=== PATIENT | female | born 1940 | race Caucasian/White ===

== ENCOUNTER → 2017-08-16 | Outpatient (CLI) | payer MEDICARE ==
--- NOTE | 2017-08-16 16:00 | Diagnostic Imaging Report ---
EXAMINATION: Bilateral screening mammogram 2D views with tomosynthesis. The current study was also evaluated with a Computer Aided Detection (CAD) system. INDICATION: Screening. PERSONAL HISTORY: No current complaints stated on the questionnaire. COMPARISON: 08/19/2016. FINDINGS: The breasts are composed of heterogeneously dense parenchyma which may decrease mammographic sensitivity. There is an oval superior periareolar lobulated nodule seen in the left breast. The right breast demonstrates no definite change. IMPRESSION: Focal compression views and ultrasound evaluation for a superior periareolar 8 mm focal asymmetry would be recommended. ACR BI-RADS Category 0: Incomplete. (Needs additional imaging evaluation). Result letter will be mailed to the patient. Note: At least 10% of breast cancer is not imaged by mammography. Dictated by: Dictated on workstation # [id number]
== END ==
LOC: RAD 09:50
PROVIDERS: ATTEND Nurse Practitioner
DX: Z12.31 Encounter for screening mammogram for malignant neoplasm of breast (principal); N64.89 Other specified disorders of breast
CPT/HCPCS: 77067

== ENCOUNTER → 2017-08-20 | Outpatient (CLI) | payer MEDICARE ==
--- NOTE | 2017-08-20 19:54 | Diagnostic Imaging Report ---
EXAMINATION: Left breast ultrasound. INDICATION: Nodule seen mammographically in the upper periareolar aspect of the left breast. FINDINGS: There is a 1.1 cm simple cyst seen at 12:00 zone, 2 cm from the nipple. This explains the nodule seen on mammography. No suspicious mass is seen. IMPRESSION: The nodule seen on mammography matches a 1.1 cm simple cyst at 12:00 zone, 2 cm from the nipple, with no suspicious mass. Annual screening mammogram is recommended. ACR BI-RADS Category 2: Benign findings. Result letter will be mailed to the patient. Note: At least 10% of breast cancer is not imaged by mammography. Dictated on workstation # [id number]
--- NOTE | 2017-08-20 19:57 | Diagnostic Imaging Report ---
EXAMINATION: Left breast diagnostic mammogram with tomography. The current study was also evaluated with a Computer Aided Detection (CAD) system. COMPARISON: 08/10/16. INDICATION: Evaluation of periareolar left breast nodule. FINDINGS: There is a confirmed nodule measuring 8 mm with lobulated circumscribed margins at 12-1 o'clock zone of the periareolar region. This is favored to be benign. Scattered benign-appearing calcifications are seen. IMPRESSION: Likely benign lobulated circumscribed 8 mm periareolar nodule is confirmed. Ultrasound evaluation pending. ACR BI-RADS Category 0: Incomplete. (Needs additional imaging evaluation). Result letter will be mailed to the patient. Note: At least 10% of breast cancer is not imaged by mammography. Dictated on workstation # [id number]
== END ==
LOC: RAD 09:02
PROVIDERS: ATTEND Nurse Practitioner
DX: R92.8 Other abnormal and inconclusive findings on diagnostic imaging of breast (principal)
CPT/HCPCS: 76642

== ENCOUNTER 2017-10-05 09:17 | Emergency (ER) | payer MEDICARE ==
[~2017-10-05] VITALS: Ht 160 cm; Wt 66.7 kg
[~2017-10-05 09:17] MED LIST: AMLO5TAB2 PO; ASPI-586 PO; IRBE300T18 PO; NFNEB10T PO; ROSU10TA24 PO; VIT1CAPS14 PO
[2017-10-05] MEDS ORDERED: PRD20T PO (10:47)
[2017-10-05] MEDS ORDERED: HYDR-757 PO (10:47)
--- NOTE | 2017-10-05 10:48 | ED Lower Extremity ---
General Chief Complaint: Lower Extremity Stated Complaint: L LEG PAIN Nursing Triage Note: PT. C/O MID-REAR PAIN RADIATING TO L-LEG. PT. STATES SHE HAS PAD. THIS PAIN STARTED ON WEDNESDAY. WORSE TODAY. NOT ABLE TO FIND COMFORTABLE PLACE TO SIT. PT. STATES SHE HAD BEEN SITTING FOR A LONG TIME SEWING ET NOTICED PAIN ONCE GETTING UP FROM SEWING. HAS ONLY TAKEN ALEVE ET TYLENOL FOR PAIN. PT. DOES HAVE STENT HX TO R-LEG. PLACED IN 2009. DR. VIRAL DIEHL IS PHYSICIAN Nursing Sepsis Screen: No Definite Risk Source: patient Exam Limitations: no limitations History of Present Illness Time seen by provider: 10:44 Initial Comments To ER with left buttock pain that radiates down the posterior left leg into the left foot. This began 2 days ago. No known injury. No loss of bowel or bladder control. No fevers or chills. No saddle anesthesia. No history of cancer. She does have peripheral arterial disease and has a stent in the right leg Onset: last week Severity: moderate Pain/Injury Location: left leg Method of Injury: unknown Modifying Factors: Worse With Movement Allergies and Home Medications Allergies Coded Allergies: Penicillins (Verified Allergy, Unknown, 08/29/17) hydrochlorothiazide (Verified Allergy, Unknown, 08/29/17) Home Medications Amlodipine Besylate 5 Mg Tablet, 5 MG PO DAILY, (Reported) Aspirin 81 Mg Tablet.dr, 81 MG PO DAILY, (Reported) Irbesartan 300 Mg Tablet, 300 MG PO DAILY, (Reported) Nebivolol HCl 10 Mg Tab, 10 MG PO HS, (Reported) Rosuvastatin Calcium 10 Mg Tablet, 10 MG PO DAILY, (Reported) Vit C/Dimitri AC/Lut/Copper/Znox 1 Each Capsule, 1 EACH PO, (Reported) Constitutional: see HPI EENTM: see HPI Respiratory: no symptoms reported Cardiovascular: no symptoms reported Genitourinary: no symptoms reported Musculoskeletal: see HPI, back pain Skin: no symptoms reported Psychiatric/Neurological: No Symptoms Reported Past Qlyiiea-Ygpjdv-Dbtkvv Hx Patient Social History Alcohol Use: Denies Use Recreational Drug Use: No Smoking Status: Never a Smoker Recent Foreign Travel: No Contact w/Someone Who Travel: No Recent Infectious Disease Expo: No Surgeries History of Surgeries: Yes (stEnt in R leg) Respiratory History of Respiratory Disorde: No Cardiovascular History of Cardiac Disorders: Yes Cardiac Disorders: Coronary Artery Disease, High Cholesterol, Hypertension Neurological History of Neurological Disord: No Genitourinary History of Genitourinary Disor: No Gastrointestinal History of Gastrointestinal Di: No Musculoskeletal History of Musculoskeletal Dis: No Endocrine History of Endocrine Disorders: No HEENT History of HEENT Disorders: No Cancer History of Cancer: No Psychosocial History of Psychiatric Problem: No Blood Transfusions History of Blood Disorders: No Physical Exam Vital Signs Vital Sign - Last 12Hours 10/05/17 09:51 Temp 98.6 Pulse 66 Resp 18 B/P (MAP) 177/75 (109) Pulse Ox 98 O2 Delivery Room Air Capillary Refill : Less Than 3 Seconds General Appearance: WD/WN, no apparent distress HEENT: PERRL/EOMI, normal ENT inspection Neck: non-tender, full range of motion Respiratory: no respiratory distress, no accessory muscle use Gastrointestinal: non tender, soft Hips: bilateral hip non-tender, bilateral hip normal inspection, bilateral hip normal range of motion Legs: left leg pain, left leg other (no swelling, no erythema, no ecchymosis, no mottling or petechiae. I am unable to palpate a dorsalis pedis pulse in either foot. However I am able to Doppler blood flow over the dorsalis pedis location bilaterally.) Knees: bilateral knee non-tender, bilateral knee normal inspection, bilateral knee normal range of motion Ankles: bilateral ankle non-tender, bilateral ankle normal inspection, bilateral ankle normal range of motion Feet: bilateral foot non-tender, bilateral foot normal inspection, bilateral foot normal range of motion Neurologic/Psychiatric: alert, normal mood/affect, oriented x 3 Skin: normal color, warm/dry Progress/Results/Core Measures Results/Orders Vital Signs/I&O Vital Sign - Last 12Hours 10/05/17 09:51 Temp 98.6 Pulse 66 Resp 18 B/P (MAP) 177/75 (109) Pulse Ox 98 O2 Delivery Room Air Blood Pressure Mean: 109 Departure Impression Impression: Primary Impression: Sciatica Disposition: 01 HOME, SELF-CARE Condition: Stable Departure-Patient Inst. Decision time for Depature: 10:46 Referrals: BEN RAMOS MD (PCP/Family) Primary Care Physician Patient Instructions: Radiculopathy Add. Discharge Instructions: 1. Medication as directed 2. Return to ER for any concerns 3. Follow-up with your doctor next week 4. Return to ER for any worsening pain or failure to improve. All discharge instructions reviewed with patient and/or family. Voiced understanding. Scripts Hydrocodone/Acetaminophen ([place] 5-325 Tablet) 1 Each Tablet 1 EACH PO Q6H Y for PAIN-MODERATE TO SEVERE, #14 TAB Prov: KRYSTYNA LARA APRN 10/05/17 Prednisone (Prednisone) 20 Mg Tab 40 MG PO DAILY, #8 TAB Prov: KRYSTYNA LARA APRN 10/05/17 KRYSTYNA LARA APRN Oct 05, 2017 10:48
[2017-10-05 11:32] VITALS: BP 175/84
== END 2017-10-05 11:33 | disposition home or self-care (01) ==
LOC: EDUNIT# 09:17 → ER 09:19
DX: M54.40 Lumbago with sciatica, unspecified side (principal); I25.10 Atherosclerotic heart disease of native coronary artery without angina pectoris; I10 Essential (primary) hypertension; E78.00 Pure hypercholesterolemia, unspecified; Z95.820 Peripheral vascular angioplasty status with implants and grafts; Z79.82 Long term (current) use of aspirin
CPT/HCPCS: 99283

== ENCOUNTER → 2017-10-28 | Outpatient (CLI) | payer MEDICARE ==
[~2017-10-28] MED LIST changes: +HYDR-757 PO; +PRD20T PO
--- NOTE | 2017-10-28 15:19 | Diagnostic Imaging Report ---
INDICATION: Back pain with extension into the left leg. COMPARISON: None. FINDINGS: Frontal and lateral radiographic views of the lumbar spine were obtained. There is slight grade 1 retrolisthesis at L3-L4. There is also slight levoscoliotic deformity epicentered at the L3 level. Otherwise, static alignment is maintained. There is no evidence of jumped facets. Vertebral body heights are maintained. There is no evidence of acute fracture. There are eknr-pu-dqmqqdmj multilevel degenerative changes consisting of intervertebral disc height loss and facet arthropathy. These changes appear greatest at the L3-L4 through L5-S1 levels. Note is made of calcified aortic and arterial atherosclerosis. No unexpected radiopaque foreign bodies are seen. IMPRESSION: 1. No radiographic evidence of acute fracture or dislocation in the lumbar spine. 2. Moderate multilevel degenerative changes. Dictated by: Dictated on workstation # [id number]
== END ==
LOC: RAD 14:11
PROVIDERS: ATTEND Physician Assistant
DX: M47.817 Spondylosis without myelopathy or radiculopathy, lumbosacral region (principal)
CPT/HCPCS: 72100

== ENCOUNTER → 2017-11-12 | Outpatient (CLI) | payer MEDICARE ==
[~2017-11-12] MED LIST changes: -ROSU10TA24 PO; +ROSU10TA26 PO
--- NOTE | 2017-11-12 16:58 | Diagnostic Imaging Report ---
PROCEDURE: MRI lumbar spine. TECHNIQUE: Multiplanar, multisequence MRI of the lumbar spine was performed without contrast. INDICATION: Low back and left leg pain. COMPARISON: Lumbar spine radiographs from 10/28/2017. FINDINGS: There are five lumbar-type vertebral bodies. Minimal anterolisthesis of L4 on L5. Alignment is otherwise unremarkable. Vertebral body heights are preserved. Moderate diffuse degenerative endplate changes. Bone marrow signal is otherwise unremarkable. No abnormal signal in the conus which terminates at L1. Normal morphology of the cauda equina. 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 L1-L2: No spinal canal, lateral recess, or neuroforaminal narrowing. L2-L3: Moderate facet arthropathy. No spinal canal, lateral recess, or neuroforaminal narrowing. L3-L4: Annular disc bulge, ligamentous hypertrophy, and facet arthropathy all result in moderate spinal canal and bilateral lateral recess narrowing. Disc space height loss also contributes to moderate bilateral neuroforaminal narrowing. L4-L5: The anterolisthesis, annular disc bulge, facet arthropathy, and ligamentous hypertrophy result in advanced bilateral lateral recess narrowing and moderate spinal canal narrowing. There is also advanced bilateral neuroforaminal narrowing. L5-S1: Ligamentous hypertrophy, facet arthropathy, and broad-based disc bulge result in advanced bilateral lateral recess narrowing and mild spinal canal narrowing. Disc space height loss also contributes to xjivivgu-xc-okbgaxaf bilateral neuroforaminal narrowing. IMPRESSION: 1. 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 2. Scattered moderate and advanced spinal canal narrowing, also detailed above. Dictated by: Dictated on workstation # [id number]
== END ==
LOC: RAD 15:54
PROVIDERS: ATTEND Physician Assistant
DX: M48.8X7 Other specified spondylopathies, lumbosacral region (principal); M51.17 Intervertebral disc disorders with radiculopathy, lumbosacral region; M46.07 Spinal enthesopathy, lumbosacral region; G96.19 Other disorders of meninges, not elsewhere classified
CPT/HCPCS: 72148

== ENCOUNTER 2020-12-28 18:43 | Inpatient (IN) | payer MEDICARE ==
[~2020-12-28] VITALS: Ht 160 cm; Wt 60.2 kg
[~2020-12-28 18:43] MED LIST changes: +AMLO-250 PO; -AMLO5TAB2 PO; +HYDR-4226 PO; -HYDR-757 PO; +IRBE300T17 PO; -IRBE300T18 PO; -ROSU10TA26 PO; +ROSU10TA28 PO
[2020-12-28] MEDS ORDERED: NS IV 1000 ML 1,000 ML IV SCH ×2 (19:00→19:30)
[2020-12-28] MEDS ORDERED: PANTOPRAZOLE 40 MG (PROTONIX) VIAL IV ONE (19:00)
[2020-12-28] MEDS ORDERED: ONDANSETRON 4 MG/2 ML (SDV) Z0FRAN IVP ONE (19:00)
[2020-12-28 19:10] LABS: BASOPHILS # (AUTO) 0.1 10^3/uL (0.0-0.1); BASOPHILS % (AUTO) 0 % (0-10); EOSINOPHILS # (AUTO) 0.1 10^3/uL (0.0-0.3); EOSINOPHILS % (AUTO) 1 % (0-10); HEMATOCRIT 29 % (35-52); HEMOGLOBIN 9.2 g/dL (11.5-16.0); LYMPHOCYTES # (AUTO) 3.4 10^3/uL (1.0-4.0); LYMPHOCYTES % (AUTO) 23 % (12-44); MEAN CORPUSCULAR HEMOGLOBIN 29 pg (25-34); MEAN CORPUSCULAR HGB CONC 32 g/dL (32-36); MEAN CORPUSCULAR VOLUME 91 fL (80-99); MEAN PLATELET VOLUME 10.6 fL (9.0-12.2); MONOCYTES # (AUTO) 0.7 10^3/uL (0.0-1.0); MONOCYTES % (AUTO) 5 % (0-12); NEUTROPHILS # (AUTO) 10.3 10^3/uL (1.8-7.8); NEUTROPHILS % (AUTO) 70 % (42-75); PLATELET COUNT 249 10^3/uL (130-400); WHITE BLOOD COUNT 14.7 10^3/uL (4.3-11.0)
--- NOTE | 2020-12-28 19:14 | Diagnostic Imaging Report ---
EXAMINATION: Chest 1 view. HISTORY: Weakness. COMPARISON: Chest radiograph 08/29/2017. FINDINGS: Heart size and pulmonary vasculature are normal. The lungs are clear without consolidation, pleural effusion or pneumothorax. Degenerative changes of the thoracic spine. Osseous structures are otherwise intact. IMPRESSION: No acute radiographic abnormality in the chest. Dictated by: Dictated on workstation # [id number]
[2020-12-28 19:28] LABS: ALANINE AMINOTRANSFERASE 20 U/L (0-55); ALBUMIN 3.6 GM/DL (3.2-4.5); ALKALINE PHOSPHATASE 52 U/L (40-136); AMYLASE 30 U/L (25-125); BAND NEUTROPHILS 1 %; BASOPHILS % (MANUAL) 0 %; BILIRUBIN,TOTAL 0.3 MG/DL (0.1-1.0); BUN/CREATININE RATIO 71; CALCIUM 8.5 MG/DL (8.5-10.1); CARBON DIOXIDE 18 MMOL/L (21-32); CHLORIDE 112 MMOL/L (98-107); CREATININE SERUM 0.75 MG/DL (0.60-1.30); EOSINOPHILS % (MANUAL) 0 %; GFR ESTIMATED > 60; GLUCOSE 145 MG/DL (70-105); LYMPHOCYTES % (MANUAL) 18 %; MAGNESIUM 1.9 MG/DL (1.6-2.4); MONOCYTES % (MANUAL) 1 %; NEUTROPHILS % (MANUAL) 78 %; POLYCHROMASIA SLIGHT; POTASSIUM 4.3 MMOL/L (3.6-5.0); REACTIVE LYMPHOCYTES 2 %; SODIUM 141 MMOL/L (135-145); TOTAL PROTEIN 5.6 GM/DL (6.4-8.2)
[2020-12-28 19:29] LABS: ANISOCYTOSIS SLIGHT
[2020-12-28 19:31] LABS: BILIRUBIN,URINE NEGATIVE (NEGATIVE); CLARITY,URINE CLEAR; COLOR,URINE YELLOW; GLUCOSE, URINE (UA) NEGATIVE (NEGATIVE); KETONES,URINE NEGATIVE (NEGATIVE); LEUKOCYTE ESTERASE ,URINE NEGATIVE (NEGATIVE); NITRITE,URINE NEGATIVE (NEGATIVE); PH,URINE 5.5 (5-9); PROTEIN,URINE NEGATIVE (NEGATIVE)
--- NOTE | 2020-12-28 19:33 | ED GI ---
General Chief Complaint: Rect Problems Stated Complaint: N/V/D Nursing Triage Note: PT TO ROOM 06 VIA EMS WITH C/O RECTAL BLEEDING/WEAKNESS X3 DAYS. Sepsis Screen: No Definite Risk Source of Information: Patient History of Present Illness Date Seen by Provider: Dec 28, 2020 Time Seen by Provider: 18:41 Initial Comments PT ARRIVES VIA EMS FROM HOME PT HAS HAD NAUSEA AND DIARRHEA WITH BLACK STOOLS SINCE LAST PM VOMITED X 1 TODAY HAS HAD 5 BLACK/DIARRHEA STOOLS NO ABDOMINAL PAIN NO FEVER, BUT HAS HAD SWEATS TODAY HAS HAD GENERALIZED WEAKNESS FOR THE LAST 2-3 DAYS NO BLOOD THINNERS, BUT TAKES 81 MG ASPIRIN DAILY NO HISTORY OF SIMILAR, AND NO HISTORY OF GI PROBLEMS PCP: DR. RAMOS--HAS NOT SEEN IN OVER A YEAR DUE TO COVID-19 FOOD SERVICE COUNTER CLERK: DR. GUIDRY--HAS ROUTINE 6 MONTH APPOINTMENT THIS Wednesday01/02/21 Allergies and Home Medications Allergies Coded Allergies: Penicillins (Verified Allergy, Unknown, 08/29/17) hydrochlorothiazide (Verified Allergy, Unknown, 08/29/17) Home Medications Amlodipine Besylate 5 Mg Tablet, 5 MG PO DAILY, (Reported) Aspirin 81 Mg Tablet.dr, 81 MG PO DAILY, (Reported) Hydrocodone/Acetaminophen 1 Each Tablet, 1 EACH PO Q6H PRN for PAIN-MODERATE TO SEVERE Prescribed by: KRYSTYNA LARA on 10/05/17 1047 Irbesartan 300 Mg Tablet, 300 MG PO DAILY, (Reported) Nebivolol HCl 10 Mg Tab, 10 MG PO HS, (Reported) Prednisone 20 Mg Tab, 40 MG PO DAILY Prescribed by: KRYSTYNA LARA on 10/05/17 1047 Rosuvastatin Calcium 10 Mg Tablet, 10 MG PO DAILY, (Reported) Patient Home Medication List Home Medication List Reviewed: Yes Review of Systems Review of Systems Constitutional: see HPI, diaphoresis, dizziness, malaise, weakness EENTM: No Symptoms Reported Respiratory: No Symptoms Reported; Denies Shortness of Air Cardiovascular: No Symptoms Reported; Denies Chest Pain Gastrointestinal: See HPI, Diarrhea, Nausea, Vomiting, Other (BLACK STOOLS) Genitourinary: No Symptoms Reported Musculoskeletal: no symptoms reported Skin: no symptoms reported Psychiatric/Neurological: No Symptoms Reported Endocrine: No Symptoms Reported Hematologic/Lymphatic: No Symptoms Reported Past Inrchgm-Bcfswg-Xfzxpe Hx Past Med/Social Hx: Reviewed and Corrections made Patient Social History Alcohol Use: Denies Use Drug of Choice: DENIES Smoking Status: Never a Smoker Recent Infectious Disease Expo: No Past Medical History Surgeries: Yes (STENT IN RIGHT LEG 2009) Vascular Surgery Respiratory: No 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 oz. 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, no motor/sensory deficits, alert, normal mood/affect, oriented x 3 Skin: cool (DRY), pallor Progress/Results/Core Measures Results/Orders Lab Results Laboratory Tests Test 12/28/20 18:55 12/28/20 19:10 Range/Units White Blood Count 14.7 H 4.3-11.0 10^3/uL Red Blood Count 3.17 L 3.80-5.11 10^6/uL Hemoglobin 9.2 L 11.5-16.0 g/dL Hematocrit 29 L 35-52 % Mean Corpuscular Volume 91 80-99 fL Mean Corpuscular Hemoglobin 29 25-34 pg Mean Corpuscular Hemoglobin Concent 32 32-36 g/dL Red Cell Distribution Width 14.4 10.0-14.5 % Platelet Count 249 130-400 10^3/uL Mean Platelet Volume 10.6 9.0-12.2 fL Immature Granulocyte % (Auto) 1 % Neutrophils (%) (Auto) 70 42-75 % Lymphocytes (%) (Auto) 23 12-44 % Monocytes (%) (Auto) 5 0-12 % Eosinophils (%) (Auto) 1 0-10 % Basophils (%) (Auto) 0 0-10 % Neutrophils # (Auto) 10.3 H 1.8-7.8 10^3/uL Lymphocytes # (Auto) 3.4 1.0-4.0 10^3/uL Monocytes # (Auto) 0.7 0.0-1.0 10^3/uL Eosinophils # (Auto) 0.1 0.0-0.3 10^3/uL Basophils # (Auto) 0.1 0.0-0.1 10^3/uL Immature Granulocyte # (Auto) 0.1 0.0-0.1 10^3/uL Neutrophils % (Manual) 78 % Lymphocytes % (Manual) 18 % Monocytes % (Manual) 1 % Eosinophils % (Manual) 0 % Basophils % (Manual) 0 % Band Neutrophils 1 % Reactive Lymphocytes 2 % Polychromasia SLIGHT Anisocytosis SLIGHT Prothrombin Time 14.0 12.2-14.7 SEC INR Comment 1.0 0.8-1.4 Activated Partial Thromboplast Time 24 24-35 SEC Sodium Level 141 135-145 MMOL/L Potassium Level 4.3 3.6-5.0 MMOL/L Chloride Level 112 H 98-107 MMOL/L Carbon Dioxide Level 18 L 21-32 MMOL/L Anion Gap 11 5-14 MMOL/L Blood Urea Nitrogen 53 H 7-18 MG/DL Creatinine 0.75 0.60-1.30 MG/DL Estimat Glomerular Filtration Rate > 60 BUN/Creatinine Ratio 71 Glucose Level 145 H 70-105 MG/DL Calcium Level 8.5 8.5-10.1 MG/DL Corrected Calcium 8.8 8.5-10.1 MG/DL Magnesium Level 1.9 1.6-2.4 MG/DL Total Bilirubin 0.3 0.1-1.0 MG/DL Aspartate Amino Transf (AST/SGOT) 19 5-34 U/L Alanine Aminotransferase (ALT/SGPT) 20 0-55 U/L Alkaline Phosphatase 52 40-136 U/L Troponin I < 0.028 <0.028 NG/ML Total Protein 5.6 L 6.4-8.2 GM/DL Albumin 3.6 3.2-4.5 GM/DL Amylase Level 30 25-125 U/L Urine Color YELLOW Urine Clarity CLEAR Urine pH 5.5 5-9 Urine Specific [place] 1.020 1.016-1.022 Urine Protein NEGATIVE NEGATIVE Urine Glucose (UA) NEGATIVE NEGATIVE Urine Ketones NEGATIVE NEGATIVE Urine Nitrite NEGATIVE NEGATIVE Urine Bilirubin NEGATIVE NEGATIVE Urine Urobilinogen 0.2 < = 1.0 MG/DL Urine Leukocyte Esterase NEGATIVE NEGATIVE Urine RBC (Auto) NEGATIVE NEGATIVE Urine RBC NONE /HPF Urine WBC NONE /HPF Urine Squamous Epithelial Cells 0-2 /HPF Urine Crystals NONE /LPF Urine Bacteria TRACE /HPF Urine Casts PRESENT /LPF Urine Hyaline Casts 0-2 H /LPF Urine Mucus SMALL H /LPF Urine Culture Indicated NO My Orders Orders - VICTORINA FORD DO Ed Iv/Invasive Line Start (12/28/20 18:48) Ekg Tracing (12/28/20 18:48) O2 (12/28/20 18:48) Monitor-Rhythm Ecg Trace Only (12/28/20 18:48) Chest 1 View, Ap/Pa Only (12/28/20 18:48) Amylase (12/28/20 18:48) Cbc With Automated Diff (12/28/20 18:48) Comprehensive Metabolic Panel (12/28/20 18:48) Magnesium (12/28/20 18:48) Protime With Inr (12/28/20 18:48) Partial Thromboplastin Time (12/28/20 18:48) Ua Culture If Indicated (12/28/20 18:48) Type And Screen (12/28/20 18:48) Troponin I (12/28/20 18:48) Ed Iv/Invasive Line Start (12/28/20 18:48) Ns Iv 1000 Ml (Sodium Chloride 0.9%) (12/28/20 19:00) Ondansetron Injection (Zofran Injectio (12/28/20 19:00) Pantoprazole Injection (Protonix Injecti (12/28/20 19:00) Catheter(Urinary) Insert & Ass 03,15 (12/28/20 18:52) Manual Differential (12/28/20 18:55) Ed Iv/Invasive Line Start (12/28/20 19:18) Ns Iv 1000 Ml (Sodium Chloride 0.9%) (12/28/20 19:30) Ct Abdomen/Pelvis W (12/28/20 19:34) Iohexol Injection (Omnipaque 350 Mg/Ml 1 (12/28/20 20:15) Received Contrast (Hold Metformin- Contr (12/28/20 20:15) Ns (Ivpb) (Sodium Chloride 0.9% Ivpb Bag (12/28/20 20:15) Medications Given in ED Current Medications Medications Dose Ordered Sig/Juan F Route Start Time Stop Time Status Last Admin Dose Admin Iohexol 100 ml ONCE ONCE IV 12/28/20 20:15 12/28/20 20:16 DC 12/28/20 20:22 70 ML Ondansetron HCl 4 mg ONCE ONCE IVP 12/28/20 19:00 12/28/20 19:01 DC 12/28/20 19:21 4 MG Pantoprazole 80 mg ONCE ONCE IV 12/28/20 19:00 12/28/20 19:01 DC 12/28/20 19:21 80 MG Sodium Chloride 100 ml ONCE ONCE IV 12/28/20 20:15 12/28/20 20:16 DC 12/28/20 20:22 80 ML Vital Signs/I&O 12/28/20 18:44 Temp 36.5 Pulse 80 Resp 16 B/P (MAP) 113/64 (80) O2 Delivery Room Air 12/29/20 00:00 Intake Total 2000 ml Balance 2000 ml Blood Pressure Mean: 47 Progress Progress Note : Progress Note GIVEN IV FLUIDS AND PROTONIX AND ZOFRAN NO DETERIORATION IN PT'S CONDITION DURING ER STAY Initial ECG Impression Date: Dec 28, 2020 Initial ECG Impression Time: 19:24 Initial ECG Rate: 86 Initial ECG Rhythm: Normal Sinus (WITH PVC'S) Initial ECG Impression: Nonspecific Changes Diagnostic Imaging Comments CXR--NO ACUTE PROCESS, PER RADIOLOGIST REPORT AT [address] CT ABDOMEN/PELVIS--PER RADIOLOGIST REPORT AT 2049 FINDINGS: Lung bases: Bibasilar dependent atelectasis. Solid organs: The liver is normal without focal lesion. The gallbladder is normal. There is no biliary ductal dilation. Pancreas is normal. Spleen is normal. There is an indeterminate 1.6 cm right adrenal nodule with Hounsfield units of 131. The left adrenal gland is unremarkable. The kidneys are normal without hydronephrosis. Bowel: The stomach and small bowel are normal without obstruction. There is scattered colonic diverticulosis. The appendix is unremarkable. Peritoneum: There is no intraperitoneal free fluid or free air. No suspicious lymphadenopathy. Vasculature: Calcification of the aorta without aneurysm. Musculoskeletal: Degenerative changes of the spine without suspicious osseous lesion or compression fracture. Pelvis: The uterus and adnexa are normal. A Sanchez catheter is present within the urinary bladder. Intraluminal air likely secondary to Sanchez catheter. IMPRESSION: 1. No acute abnormality in the abdomen or pelvis. 2. Colonic diverticulosis without findings of diverticulitis. 3. Indeterminate 1.6 cm right adrenal nodule. This can be evaluated with a dedicated CT or MRI of the abdomen adrenal mass protocol in a nonemergent setting. Reviewed: Reviewed by Me Departure Communication (Admissions) Family Conversation RN HAS UPDATED PT'S SON ON CONDITION AND PLAN FOR ADMIT 2049--SPOKE WITH DR. HART, HOSPITALIST, ACCEPTS PT FOR ADMIT 2053--SPOKE WITH DR. LEVY, SURGERY CONSULT Impression Primary Impression: GI bleed Additional Impression: Anemia Disposition: ADMITTED INPATIENT Condition: Stable Admissions Decision to Admit Reason: Admit from ER (General) Decision to Admit/Date: Dec 28, 2020 Time/Decision to Admit Time: 20:50 Departure-Patient Inst. Referrals: BEN RAMOS MD (PCP/Family) Primary Care Physician VICTORINA FORD DO Dec 28, 2020 19:33
[2020-12-28 19:36] LABS: BACTERIA,URINE TRACE /HPF; HYALINE CASTS, URINE 0-2 /LPF; SQUAMOUS EPITHELIAL CELL,UR 0-2 /HPF
[2020-12-28] MEDS ORDERED: NS 100 ML (IVPB) BAG IV ONE (20:15)
[2020-12-28] MEDS ORDERED: HOLD METFORMIN - RECEIVED CONTRAST 20 ML VIAL IV SCH (20:15)
[2020-12-28] MEDS ORDERED: IOHEXOL 350 MG/ML 100 ML (OMNIPAQUE 350) VIAL IV ONE (20:15)
--- NOTE | 2020-12-28 20:42 | Diagnostic Imaging Report ---
EXAMINATION: CT abdomen and pelvis with intravenous contrast. TECHNIQUE: Multiple contiguous axial images were obtained through the abdomen and pelvis after the uneventful administration of intravenous contrast. All CT scans use one or more of the following dose optimizing techniques: automated exposure control, MA and/or KvP adjustment based on patient size and exam type or iterative reconstruction. HISTORY: VOMITING/DIARRHEA, BLACK STOOLS, ANEMIA COMPARISON: None available. FINDINGS: Lung bases: Bibasilar dependent atelectasis. Solid organs: The liver is normal without focal lesion. The gallbladder is normal. There is no biliary ductal dilation. Pancreas is normal. Spleen is normal. There is an indeterminate 1.6 cm right adrenal nodule with Hounsfield units of 131. The left adrenal gland is unremarkable. The kidneys are normal without hydronephrosis. Bowel: The stomach and small bowel are normal without obstruction. There is scattered colonic diverticulosis. The appendix is unremarkable. Peritoneum: There is no intraperitoneal free fluid or free air. No suspicious lymphadenopathy. Vasculature: Calcification of the aorta without aneurysm. Musculoskeletal: Degenerative changes of the spine without suspicious osseous lesion or compression fracture. Pelvis: The uterus and adnexa are normal. A Sanchez catheter is present within the urinary bladder. Intraluminal air likely secondary to Sanchez catheter. IMPRESSION: 1. No acute abnormality in the abdomen or pelvis. 2. Colonic diverticulosis without findings of diverticulitis. 3. Indeterminate 1.6 cm right adrenal nodule. This can be evaluated with a dedicated CT or MRI of the abdomen adrenal mass protocol in a nonemergent setting. Dictated by: Dictated on workstation # [id number]
[2020-12-28 21:58] VITALS: BP 155/77
[2020-12-28] MEDS ORDERED: ONDANSETRON 4 MG/2 ML (SDV) Z0FRAN IV PRN (22:15)
[2020-12-28 22:35] LABS: HEMOGLOBIN 7.5 g/dL (11.5-16.0)
[2020-12-28] MEDS: NS IV 1000 ML 1,000 ML IV SCH (22:48)
--- NOTE | 2020-12-28 23:11 | CONSULTATION REPORT ---
DATE OF SERVICE: ADMITTING PHYSICIAN: Dr. Rema Abernathy ATTENDING PRIMARY CARE PHYSICIAN: Dr. Soren Teague. HISTORY OF PRESENT ILLNESS: The patient is an 80 year-old female who presented to the Emergency Department with significant weakness as well as diarrhea and noticing very dark stools. She also reports that she did have one episode of nausea and vomiting; however, does not recall any hematemesis, no coffee ground emesis. She does not report any past history of peptic ulcer disease; however, is on aspirin for coronary artery disease and peripheral vascular disease. Her hemoglobin on admission was 9.2. PAST MEDICAL HISTORY: Hypertension, peripheral vascular disease, coronary artery disease, hypertension, hypercholesterolemia. PAST SURGICAL HISTORY: Lower extremity arterial angioplasty and stent placement. ALLERGIES: PENICILLIN, HYDROCHLOROTHIAZIDE. MEDICATIONS: Amlodipine 5 mg daily, aspirin 81 mg daily, irbesartan 300 mg daily, nebivolol 10 mg daily, rosuvastatin 10 mg daily. SOCIAL HISTORY: Negative smoke, negative alcohol. FAMILY HISTORY: Noncontributory. VITAL SIGNS: Temperature 35.5, blood pressure 81/47, pulse 103, pulse ox 96% on room air. REVIEW OF SYSTEMS: This is a well-nourished female, currently weak. She is alert and oriented. She does report some exertional shortness of breath. No cough or sputum production. No chest pain, palpitations or diaphoresis. One episode of nausea, vomiting. No hematemesis, no coffee ground emesis. Loose stools for the past 3 days, which had been darker in coloration. No red blood per rectum. No fever, chills, no recent inadvertent weight loss. All other review of systems negative. PHYSICAL EXAMINATION: CHEST: Few scattered rales bilaterally. HEART: Regular, no murmurs. EXTREMITIES: No lower extremity edema, negative Homans sign. HEENT: No scleral icterus. NECK: No cervical lymphadenopathy. ABDOMEN: Soft, nondistended. There is mild discomfort in the epigastric region upon deep palpation. No peritoneal signs. SKIN: Warm, dry. LABORATORY DATA: WBC 14.7, hemoglobin 9.2, hematocrit 29, platelets 249, BUN 53, creatinine 0.75. ASSESSMENT AND PLAN: An 81-year-old female with anemia likely secondary to an upper gastrointestinal bleed. She is being admitted and given IV hydration and serial hemoglobin and hematocrit checks. She is also being started on a PPI IV on a b.i.d. basis. We will also proceed with an EGD on this admission. Job ID: [id number] DocumentID: [id number] Dictated Date: 12/28/2020 22:10:13 Customer Equipment Engineer Date: 12/28/2020 23:10:28 Dictated By: MATHIEU LEVY MD [facility]
[2020-12-28 23:43] VITALS: BP 171/64
[2020-12-29] VITALS (9 sets, daily range): BP systolic 123–157; BP diastolic 54–68
[2020-12-29 05:02] LABS: BASOPHILS % (AUTO) 0 % (0-10); EOSINOPHILS % (AUTO) 0 % (0-10); HEMATOCRIT 25 % (35-52); HEMOGLOBIN 7.5 g/dL (11.5-16.0); LYMPHOCYTES # (AUTO) 2.4 10^3/uL (1.0-4.0); LYMPHOCYTES % (AUTO) 20 % (12-44); MEAN CORPUSCULAR HEMOGLOBIN 29 pg (25-34); MEAN CORPUSCULAR HGB CONC 31 g/dL (32-36); MEAN CORPUSCULAR VOLUME 95 fL (80-99); MEAN PLATELET VOLUME 11.7 fL (9.0-12.2); MONOCYTES # (AUTO) 0.6 10^3/uL (0.0-1.0); MONOCYTES % (AUTO) 5 % (0-12); NEUTROPHILS # (AUTO) 8.8 10^3/uL (1.8-7.8); NEUTROPHILS % (AUTO) 74 % (42-75); PLATELET COUNT 197 10^3/uL (130-400); WHITE BLOOD COUNT 11.9 10^3/uL (4.3-11.0)
[2020-12-29 05:12] LABS: ALBUMIN 3.1 GM/DL (3.2-4.5); CHLORIDE 116 MMOL/L (98-107); POTASSIUM 4.2 MMOL/L (3.6-5.0); SODIUM 142 MMOL/L (135-145)
[2020-12-29] MEDS: NS IV 1000 ML 1,000 ML IV SCH ×3 (05:13→17:36)
[2020-12-29 05:14] LABS: CALCIUM 7.5 MG/DL (8.5-10.1)
[2020-12-29 05:15] LABS: GLUCOSE 106 MG/DL (70-105); TOTAL PROTEIN 4.8 GM/DL (6.4-8.2)
[2020-12-29 05:16] LABS: CARBON DIOXIDE 15 MMOL/L (21-32)
[2020-12-29 05:17] LABS: BILIRUBIN,TOTAL 0.4 MG/DL (0.1-1.0)
[2020-12-29 05:18] LABS: ALKALINE PHOSPHATASE 40 U/L (40-136)
[2020-12-29 05:19] LABS: CREATININE SERUM 0.62 MG/DL (0.60-1.30); GFR ESTIMATED > 60
[2020-12-29 05:20] LABS: BUN/CREATININE RATIO 69
[2020-12-29 05:21] LABS: ALANINE AMINOTRANSFERASE 16 U/L (0-55)
[2020-12-29] MEDS: PANTOPRAZOLE 40 MG (PROTONIX) VIAL IV SCH ×2 (08:29→20:56)
--- NOTE | 2020-12-29 10:28 | Conscious Sedation/ASA ---
Conscious Sedation Pre-Proced Time 10:30 ASA Score 2 For ASA 3 and 4: Consider anesthesia and medical clearance. Also, for patients with a history of failed moderate sedation consider anesthesia. Airway Lungs Heart ASA score ASA 1: a normal healthy patient ASA 2: a patient with a mild systemic disease (mid diabetes, controlled hypertension, obesity ASA 3: a patient with a severe systemic disease that limits activity (angina, COPD, prior Myocardial infarction) ASA 4: a patient with an incapacitating disease that is a constant threat to life (CHF, renal failure) ASA 5: a moribund patient not expected to survive 24 hrs. (ruptured aneurysm) ASA 6: a declared brain- patient whose organs are being harvested. For emergent operations, add the letter E after the classification Mallampati Classification Grade 2 Sedation Plan Analgesia, Amnesia, Plan communicated to team members, Discussed options with patient/fam, Discussed risks with patient/fam The patient is an appropriate candidate to undergo the planned procedure, sedation, and anesthesia. The patient immediately re-assessed prior to indication. MATHIEU LEVY MD Dec 29, 2020 10:28
--- NOTE | 2020-12-29 10:29 | Progress Note-Pre Operative ---
Pre-Operative Progress Note H&P Reviewed The H&P was reviewed, patient examined and no changes noted. Date Seen by Provider: Dec 29, 2020 Time Seen by Provider: 10:30 Date H&P Reviewed: Dec 29, 2020 Time H&P Reviewed: 10:30 Pre-Operative Diagnosis: Upper GI bleed MATHIEU LEVY MD Dec 29, 2020 10:29
[2020-12-29] MEDS ORDERED: IRBESARTAN 150 MG (AVAPRO) TAB PO ONE (10:45)
[2020-12-29] MEDS ORDERED: meTOproloL SUCCINATE 50 MG (TOPROL XL) TAB PO ONE (10:45)
[2020-12-29] MEDS ORDERED: hydrALAZINE (APRESOLINE) 25 MG TAB PO ONE (10:45)
--- NOTE | 2020-12-29 10:49 | History & Physical-Hospitalist ---
History of Present Illness HPI/Chief Complaint Diana Coleman is an 80-year-old female with past medical history of hypertension, hyperlipidemia, Gmhau-Rgdrnnoky-Fmwso, who presented with melena and hematemesis. She reports that she first started getting sick on Wednesday night. She reports having dark stools and diarrhea. She had one episode of vomiting with bloody emesis. She denies any abdominal pain. She has been lightheaded and dizzy. She denies any chest pain or palpitations. She denies any shortness of breath or cough. She has only taken two Aleve recently. She takes an aspirin daily. She does not use tobacco, alcohol, or illicit drugs. She has never had any issues with GI bleeding previously. Source: patient Exam Limitations: no limitations Date Seen 12/29/20 Time Seen by a Provider: 10:15 Attending Physician Susana Hart MD PCP Soren Teague MD Referring Physician Date of Admission Dec 28, 2020 at 20:50 Home Medications & Allergies Home Medications Reviewed patient Home Medication Reconciliation performed by pharmacy medication reconciliations donor support technician and/or nursing. Patients Allergies have been reviewed. Allergies Allergies Coded Allergies Penicillins (Verified Allergy, Unknown, 08/29/17) hydrochlorothiazide (Verified Allergy, Unknown, 08/29/17) Past Omaahxe-Kdfeio-Ojuukb Hx Past Med/Social Hx: Reviewed Nursing Past Med/Soc Hx Patient Social History Alcohol Use: Denies Use Recreational Drug Use: No Drug of Choice: DENIES Smoking Status: Never a Smoker Recent Foreign Travel: No Contact w/other who traveled: No Recent Infectious Disease Expo: No Past Medical History Surgeries: Vascular Surgery Cardiac: Coronary Artery Disease, High Cholesterol, Hypertension, Irregular Heartbeat, Peripheral Vascular History of Blood Disorders: No Review of Systems Constitutional: dizziness EENTM: no symptoms reported Respiratory: no symptoms reported Cardiovascular: no symptoms reported Gastrointestinal: hematemesis, melena Genitourinary: no symptoms reported Musculoskeletal: no symptoms reported Skin: no symptoms reported Psychiatric/Neurological: No Symptoms Reported Physical Exam Physical Exam Vital Signs Vital Signs - First Documented 12/28/20 12/28/20 18:44 21:30 Temp 36.5 Pulse 80 Resp 16 B/P (MAP) 113/64 (80) Pulse Ox 96 O2 Delivery Room Air Capillary Refill : Less Than 3 Seconds Height, Weight, BMI Height: 5'3.00" Weight: 147lbs. oz. 66.279892nt; 21.95 BMI Method:Stated General Appearance: No Apparent Distress, WD/WN HEENT: PERRL/EOMI, Pharynx Normal Neck: Normal Inspection, Supple Respiratory: Lungs Clear, Normal Breath Sounds, No Respiratory Distress Cardiovascular: Regular Rate, Rhythm, No Edema, No Murmur Gastrointestinal: Normal Bowel Sounds, Non Tender, Soft Extremity: Normal Inspection, Non Tender, No Pedal Edema Neurologic/Psychiatric: Alert, Oriented x3, No Motor/Sensory Deficits, Normal Mood/Affect Skin: Warm/Dry, Pallor Results Results/Procedures Labs Laboratory Tests 12/28/20 18:55 12/28/20 22:26 12/29/20 04:23 Patient resulted labs reviewed. Imaging: Reviewed Imaging Report Assessment/Plan Admission Diagnosis acute upper GI bleeding Admission Status: Inpatient Order (span 2 midnights) Reason for Inpatient Admission: upper GI bleed requiring endoscopic evaluation Assessment and Plan Acute upper GI bleeding Melena Coffee-ground emesis Acute blood loss anemia No ongoing emesis or melena Hemoglobin 9.2 on arrival, decreased to 7.[address] Abdomen without acute changes, diverticulosis, adrenal incidentaloma noted Hemodynamically stable Continue IV fluids IV PPI BID Surgery consulted, planning for EGD tomorrow NPO at midnight Will plan to transfuse if Hgb <7 HTN Continue home meds: Toprol, Irbesartan, Hydralazine 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
[2020-12-29] MEDS ORDERED: LOSARTAN 100 MG (COZAAR) TABLET PO ONE (11:00)
[2020-12-29 19:38] LABS: HEMOGLOBIN 4.7 g/dL (11.5-16.0)
[2020-12-29] MEDS ORDERED: NS IV 500 ML 500 ML IV SCH (20:00)
[2020-12-29] MEDS: D5 1/2 NS W/KCL 20 MEQ/L 1,000 ML IV SCH (20:35)
[2020-12-29] MEDS: hydrALAZINE (APRESOLINE) 25 MG TAB PO SCH (20:56)
[2020-12-30] VITALS (38 sets, daily range): BP systolic 77–210; BP diastolic 40–126
[2020-12-30 05:08] LABS: HEMOGLOBIN 9.6 g/dL (11.5-16.0)
[2020-12-30 05:16] LABS: CHLORIDE 119 MMOL/L (98-107); POTASSIUM 3.8 MMOL/L (3.6-5.0); SODIUM 142 MMOL/L (135-145)
[2020-12-30 05:17] LABS: CALCIUM 7.4 MG/DL (8.5-10.1); GLUCOSE 104 MG/DL (70-105)
[2020-12-30 05:19] LABS: CARBON DIOXIDE 16 MMOL/L (21-32)
[2020-12-30 05:21] LABS: CREATININE SERUM 0.63 MG/DL (0.60-1.30); GFR ESTIMATED > 60
[2020-12-30 05:22] LABS: BUN/CREATININE RATIO 30
[2020-12-30] MEDS: D5 1/2 NS W/KCL 20 MEQ/L 1,000 ML IV SCH ×2 (06:19→16:10)
[2020-12-30] MEDS: hydrALAZINE (APRESOLINE) 25 MG TAB PO SCH ×2 (08:09→21:13)
[2020-12-30] MEDS: LOSARTAN 100 MG (COZAAR) TABLET PO SCH (08:09)
[2020-12-30] MEDS: meTOproloL SUCCINATE 50 MG (TOPROL XL) TAB PO SCH (08:09)
[2020-12-30] MEDS: PANTOPRAZOLE 40 MG (PROTONIX) VIAL IV SCH ×2 (08:09→21:13)
[2020-12-30] MEDS ORDERED: IRBESARTAN 150 MG (AVAPRO) TAB PO SCH (09:00)
--- NOTE | 2020-12-30 09:07 | Progress Note - Hospitalist ---
Subjective HPI/CC On Admission Date Seen by Provider: Dec 30, 2020 Time Seen by Provider: 09:04 Diana Coleman is an 80-year-old female with past medical history of hypertension, hyperlipidemia, Ixcgk-Vcssodoah-Zvezq, who presented with melena and hematemesis. She reports that she first started getting sick on Wednesday night. She reports having dark stools and diarrhea. She had one episode of vomiting with bloody emesis. She denies any abdominal pain. She has been lightheaded and dizzy. She denies any chest pain or palpitations. She denies any shortness of breath or cough. She has only taken two Aleve recently. She takes an aspirin daily. She does not use tobacco, alcohol, or illicit drugs. She has never had any issues with GI bleeding previously. Subjective/Events-last exam Pt reports feeling better today. No complaints. Received 3 units of blood overnight. Plan is for EGD today. RN reports dark stool throughout night and this morning. Objective Exam Vital Signs Vital Signs Date Time Temp Pulse Resp B/P (MAP) Pulse Ox O2 Delivery O2 Flow Rate FiO2 12/30/20 08:00 98 Room Air 12/30/20 08:00 36.2 66 20 177/74 (108) Capillary Refill : Less Than 3 Seconds General Appearance: No Apparent Distress, WD/WN Respiratory: Lungs Clear, No Respiratory Distress Cardiovascular: Regular Rate, Rhythm, No Murmur Neurologic/Psychiatric: Alert, Oriented x3 Results/Procedures Lab Laboratory Tests 12/29/20 19:26 12/30/20 04:50 Patient resulted labs reviewed. 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
[2020-12-30] MEDS ORDERED: HYDR-3923 PO (10:58)
[2020-12-30] MEDS ORDERED: METO50TA7 PO (10:58)
[2020-12-30] MEDS ORDERED: ASPI-1238 PO (10:58)
[2020-12-30] MEDS ORDERED: PROP1.5D OU (10:58)
[2020-12-30] MEDS ORDERED: ACET325T38 PO (10:58)
[2020-12-30] MEDS ORDERED: NS IV 500 ML 500 ML ONE (13:29)
[2020-12-30] MEDS ORDERED: LIDOCAINE JELLY 2% 6 ML SYRINGE ONE (13:44)
[2020-12-30] MEDS ORDERED: fentaNYL INJECTION 100 MCG/2 ML AMP ONE (13:44)
[2020-12-30] MEDS ORDERED: MIDAZOLAM 5 MG/5 ML (VERSED) VIAL ONE (13:44)
[2020-12-30] MEDS ORDERED: HURRICAINE EXT TUBE (BENZOCAINE) XX ONE (14:15)
[2020-12-30] MEDS ORDERED: LIDOCAINE JELLY 2% 6 ML SYRINGE TOP ONE (14:15)
[2020-12-30] MEDS ORDERED: fentaNYL INJECTION 100 MCG/2 ML AMP IVP ONE (14:30)
[2020-12-30] MEDS ORDERED: MIDAZOLAM 5 MG/5 ML (VERSED) VIAL IV ONE (14:30)
--- NOTE | 2020-12-30 15:14 | Progress Note-Post Operative ---
Post-Operative Progess Note Surgeon (s)/Caramel Maker (s) Surgeon MATHIEU LEVY MD Caramel Maker: none Pre-Operative Diagnosis Upper GI bleed Post-Operative Diagnosis reflux esophagitis(stage 2), small HH(2cm), old clotted blood stomach, diffuse gastritis body stomach, no formal ulcerations, pylorus and duo normal. Procedure & Operative Findings Date of Procedure 12/30/20 Procedure Performed/Findings EGD with bx. Anesthesia Type cs Estimated Blood Loss Estimated blood loss (mL): minimal Specimens/Packing Specimens Removed body stomach, ge jxn MATHIEU LEVY MD Dec 30, 2020 15:14
[2020-12-30] MEDS: SUCRALFATE 1 GM (CARAFATE) TAB PO SCH ×2 (16:11→21:13)
[2020-12-30] MEDS ORDERED: NALOXONE 0.4 MG/ML 1 ML (NARCAN) VIAL IV ONE (16:56)
[2020-12-30 17:16] LABS: HEMOGLOBIN 9.7 g/dL (11.5-16.0)
--- NOTE | 2020-12-31 00:53 | OPERATIVE REPORT ---
DATE OF SERVICE: 12/28/2020 ATTENDING PRIMARY CARE PHYSICIAN: Dr. Soren Teague. ADMITTING PHYSICIAN: Dr. Abernathy. PREOPERATIVE DIAGNOSES: Symptomatic anemia and dark tarry stools. POSTOPERATIVE DIAGNOSES: Clotted blood within the stomach, small hiatal hernia approximately 2 cm in size, diffuse gastritis encompassing the majority of the body of the stomach, there did not appear to be any active bleeding and the duodenum appeared normal with no ulcerations or any blood. PROCEDURE: EGD with biopsy. SURGEON: Mathieu Levy MD. ANESTHESIA: Conscious sedation. ESTIMATED BLOOD LOSS: Minimal. FINDINGS: Clotted blood within the stomach, small hiatal hernia approximately 2 cm in size, diffuse gastritis encompassing the majority of the body of the stomach, there did not appear to be any active bleeding and the duodenum appeared normal with no ulcerations or any blood. DISPOSITION: The patient tolerated the procedure well. INDICATIONS: The patient is an 80-year-old female with a known history of anemia. She states that she has been found to be anemic multiple times and has been worked up, which did not yield a significant source of blood loss. She states that she normally does receive a blood transfusion every two to three months. She states that she has had a worsening fatigue and exertional shortness of breath and presented to the Emergency Department where she was found to have a significantly low hemoglobin in the 9 range. She was started on IV proton pump inhibitor and her hemoglobin appeared stable; however, did drop overnight requiring 3 units of packed red blood cells. She does not report any epigastric pain or any previous history of gastroesophageal reflux disease and peptic ulcer disease. She does state that she does take an 81 mg aspirin daily. DESCRIPTION OF PROCEDURE: The patient was brought to the endoscopy suite, laid in left lateral decubitus position with head slightly elevated. After adequate IV pain and sedative medications and conscious sedation anesthesia, the mouthpiece was applied. The endoscope was then placed in the mouth, visualizing the pharynx and hypopharyngeal region. Vocal cords, epiglottis and vallecula identified and appeared to be normal. Endoscope was then intubated, the esophageal opening and esophagus insufflated. The endoscope was then advanced through the first, second and third portion of esophagus at the level of the GE junction, a reflux esophagitis stage II identified. There were no ulcers, strictures, or any bleeding identified within this region. A biopsy was taken with forceps with visualization of good hemostasis. The endoscope was then advanced into the stomach, visualizing a significant amount of clotted blood. This was irrigated and suctioned out as well as possible and the patient was also placed on different positions. The blood clot appeared to be movable. There did appear to be a diffuse gastritis more towards the body of the stomach; however, no formal ulcerations or any active bleeding. The endoscope was retroflexed, visualizing a small hiatal hernia approximately 2 cm in size. A biopsy was taken of the body of the stomach with forceps with visualization of good hemostasis. We then proceeded through the pylorus and the first and second portion of the duodenum with no ulcerations as well as no blood within this region as well. The endoscope was then slowly withdrawn while taking a second look and suctioning of residual air with no additional findings. The patient tolerated the procedure well. We will continue with medical management for now and continue her b.i.d. PPI IV and also add Carafate q.i.d. and close monitoring of her hemoglobin. Job ID: [id number] DocumentID: [id number] Dictated Date: 12/30/2020 15:01:53 Ash Handler Date: 12/31/2020 00:52:47 Dictated By: MATHIEU LEVY MD
[2020-12-31] MEDS: D5 1/2 NS W/KCL 20 MEQ/L 1,000 ML IV SCH ×2 (01:31→05:21)
[2020-12-31 03:27] VITALS: BP 118/55
[2020-12-31] MEDS: SUCRALFATE 1 GM (CARAFATE) TAB PO SCH ×4 (05:20→20:52)
[2020-12-31 07:51] VITALS: BP 163/71
[2020-12-31] MEDS: hydrALAZINE (APRESOLINE) 25 MG TAB PO SCH ×2 (08:15→20:54)
[2020-12-31] MEDS: LOSARTAN 100 MG (COZAAR) TABLET PO SCH (08:15)
[2020-12-31] MEDS: meTOproloL SUCCINATE 50 MG (TOPROL XL) TAB PO SCH (08:15)
[2020-12-31] MEDS: PANTOPRAZOLE 40 MG (PROTONIX) VIAL IV SCH (08:15)
--- NOTE | 2020-12-31 11:04 | Progress Note - Hospitalist ---
Subjective HPI/CC On Admission Date Seen by Provider: Dec 31, 2020 Time Seen by Provider: 10:58 Diana Coleman is an 80-year-old female with past medical history of hypertension, hyperlipidemia, Dwgbn-Wtnccsrfg-Euzos, who presented with melena and hematemesis. She reports that she first started getting sick on Wednesday night. She reports having dark stools and diarrhea. She had one episode of vomiting with bloody emesis. She denies any abdominal pain. She has been lightheaded and dizzy. She denies any chest pain or palpitations. She denies any shortness of breath or cough. She has only taken two Aleve recently. She takes an aspirin daily. She does not use tobacco, alcohol, or illicit drugs. She has never had any issues with GI bleeding previously. Subjective/Events-last exam Pt reports feeling better today. Had EGD yesterday. No issues. Hgb stable today. Objective Exam Vital Signs Vital Signs Date Time Temp Pulse Resp B/P (MAP) Pulse Ox O2 Delivery O2 Flow Rate FiO2 12/31/20 08:00 98 Room Air 10.00 12/31/20 07:51 36.2 62 15 163/71 (101) Capillary Refill : Less Than 3 Seconds General Appearance: No Apparent Distress, WD/WN Respiratory: Lungs Clear, No Respiratory Distress Cardiovascular: Regular Rate, Rhythm, No Murmur Gastrointestinal: Normal Bowel Sounds, Non Tender, Soft Neurologic/Psychiatric: Alert, Oriented x3 Results/Procedures Lab Laboratory Tests 12/30/20 17:08 12/31/20 06:04 Patient resulted labs reviewed. 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
--- NOTE | 2020-12-31 11:28 | Physical Therapy Evaluation ---
PT Evaluation-General Medical Diagnosis Admission Date Dec 28, 2020 at 20:50 Medical Diagnosis: GI bleed/anemia Onset Date: Dec 28, 2020 Therapy Diagnosis Therapy Diagnosis: generalized weakness/debility Height/Weight Height (Feet): 5 Height (Inches): 3.00 Weight (Pounds): 147 Precautions Precautions/Isolations: Fall Prevention, Standard Precautions Referral Physician: Justine Reason for Referral: Evaluation/Treatment Medical History Pertinent Medical History: CAD, HTN, PVD Current History EMS secondary to rectal bleeding x 3 days Reviewed History: Yes Social History Home: Multilevel Current Living Status: Alone Entry Into Home: Level Entry lives in walkout basement Prior Prior Level of Function SCALE: Activities may be completed with or without assistive devices. 2-Hyqjzcjjvp-opaxfwv completes the activity by him/herself with no assistance from a helper. 5-Set-up or Clean-up Assistance-helper sets up or cleans up; patient completes activity. [place] assists only prior to or following the activity. 4-Supervision or Touching Assistance-helper provides verbal cues and/or touching/steadying and/or contact guard assistance as patient completes activity. Assistance may be provided throughout the activity or intermittently. 3-Partial/Moderate Assistance-helper does LESS THAN HALF the effort. [place] lifts, holds or supports trunk or limbs, but provides less than half the effort. 2-Substantial/Maximal Assistance-helper does MORE THAN HALF the effort. [place] lifts or holds trunk or limbs and provides more than half the effort. 1-Xupvtvrln-reucsz does ALL the effort. Patient does none of the effort to complete the activity. Or, the assistance of 2 or more helpers is required for the patient to complete the activity. If activity was not attempted, code reason: 7-Patient Refused. 9-Not Applicable-not attempted and the patient did not perform the activity before the current illness, exacerbation or injury. 10-Not Attempted due to Environmental Limitations-(lack of equipment, weather restraints, etc.). 88-Not Attempted due to Medical Conditions or Safety Concerns. Bed Mobility: 6 Transfers (B,C,W/C): 6 Gait: 6 Indoor Mobility (Ambulation): Independent Prior Devices Use: None PT Evaluation-Current Subjective Patient agrees to PT but declined to ambulate in hallway. Objective Patient Orientation: Normal For Age Attachments: IV ROM/Strength ROM Lower Extremities bilateral LE WFL Strength Lower Extremities 3/5 grossly bilateral LE Integumentary/Posture Integumentary refer to nursing notes Bowel Incontinence: No Bladder Incontinence: No Posture WFL Neuromuscular (Tone, Coordination, Reflexes) grossly intact Sensory Vision: Wears Glasses Hearing: Functional Transfers Roll Left to Right (QC): 6 Sit to Lying (QC): 6 Lying to Sitting/Side of Bed(Q: 6 Sit to Stand (QC): 4 Gait Does the Patient Walk?: Yes Mode of Locomotion: Walk Anticipated Mode of Locomotion: Walk Walk 10 feet (QC): 4 Walk 50 ft with 2 Turns(QC): 4 Walk 150 ft (QC): 4 Gait Assistive Device: FWW Comments/Gait Description difficulty with FWW use due to first time use of FWW Balance Sitting Static: Normal Sitting Dynamic: Normal Standing Static: Fair Standing Dynamic: Fair Assessment/Needs 80 y.o. female, will benefit from skilled PT To address functional strength and mobility to improve current LOF to safely return to home at maximum LOF. Rehab Potential: Fair PT Chcf Goals Chcf Goals PT Chcf Goals Time Frame: Jan 11, 2021 Roll Left & Right (QC): 6 Sit to Lying (QC): 6 Lying-Sitting on Side/Bed(QC): 6 Sit to Stand (QC): 6 Chair/Udi-px-Wfahb Xfer(QC): 6 Toilet Transfer (QC): 6 Does the Patient Walk: Yes Walk 10 feet (QC): 6 Walk 50ft with 2 Turns (QC): 6 Walk 150 ft (QC): 6 PT Plan Problem List Problem List: Activity Tolerance, Functional Strength, Gait Treatment/Plan Treatment Plan: Continue Plan of Care Treatment Plan: Bed Mobility, Education, Functional Activity Iftikhar, Functional Strength, Gait, Safety, Therapeutic Exercise, Transfers Treatment Duration: Jan 11, 2021 Frequency: 6 times per week Estimated Hrs Per Day: .25 hour per day Time/GCodes Time In: 1057 Time Out: 1109 Total Billed Treatment Time: 12 Total Billed Treatment 1 visit EVModC 12 min VIDAL ROD PT Dec 31, 2020 11:28
[2020-12-31 12:05] VITALS: BP 174/76
--- NOTE | 2020-12-31 12:26 | Progress Note ---
Subjective Date Seen by a Provider: Dec 31, 2020 Time Seen by a Provider: 12:00 Subjective/Events-last exam doing ok. still having some dark stools. Hb stable. Objective Exam Vital Signs Date Time Temp Pulse Resp B/P (MAP) Pulse Ox O2 Delivery O2 Flow Rate FiO2 12/31/20 12:05 36.2 62 15 174/76 (108) 99 Room Air 12/31/20 08:00 98 Room Air 10.00 12/31/20 07:51 36.2 62 15 163/71 (101) 98 Room Air 12/31/20 06:46 59 12/31/20 03:27 36.0 60 16 118/55 (76) 98 Room Air 12/31/20 01:00 71 12/30/20 23:45 96 Room Air 12/30/20 23:37 36.3 58 16 134/62 (86) 97 Room Air 12/30/20 19:58 Room Air 12/30/20 19:16 36.4 64 16 113/54 (73) 96 Room Air 12/30/20 19:00 62 12/30/20 16:10 36.0 63 16 119/68 (85) 91 Room Air 12/30/20 15:30 54 18 100 OxyMask 10 12/30/20 15:20 50 18 100 OxyMask 10 12/30/20 15:15 50 18 100 OxyMask 10 12/30/20 15:10 53 18 98 OxyMask 10 12/30/20 15:05 48 18 100 OxyMask 6 12/30/20 15:01 48 18 100 OxyMask 6 12/30/20 15:00 51 18 100 OxyMask 6 12/30/20 14:55 44 18 100 OxyMask 6 12/30/20 14:53 45 18 96 OxyMask 6 12/30/20 14:50 43 18 100 OxyMask 6 12/30/20 14:45 47 18 100 OxyMask 6 12/30/20 14:40 53 18 100 OxyMask 6 12/30/20 14:35 57 18 100 OxyMask 6 12/30/20 14:30 58 18 100 OxyMask 6 12/30/20 14:25 53 18 100 OxyMask 6 12/30/20 14:20 60 18 100 OxyMask 6 12/30/20 14:15 54 18 100 OxyMask 6 12/30/20 14:10 57 18 100 OxyMask 6 12/30/20 14:05 55 18 100 OxyMask 6 12/30/20 14:00 62 18 100 OxyMask 6 12/30/20 13:55 60 18 100 OxyMask 6 12/30/20 13:50 57 18 100 OxyMask 6 12/30/20 13:47 65 18 100 OxyMask 6 12/30/20 13:45 67 18 100 OxyMask 6 12/30/20 13:44 67 18 100 OxyMask 6 12/30/20 12:46 70 I & O 12/31/20 07:00 Intake Total 750 ml Output Total 1125 ml Balance -375 ml Capillary Refill : Less Than 3 Seconds General Appearance: No Apparent Distress HEENT: PERRL/EOMI Neck: Full Range of Motion Respiratory: Chest Non Tender Cardiovascular: Regular Rate, Rhythm Gastrointestinal: normal bowel sounds, non tender, soft Extremity: Normal Capillary Refill Neurologic/Psychiatric: Alert, Oriented x3 Skin: Normal Color Lymphatic: No Adenopathy Results Lab Laboratory Tests 12/30/20 13:40: Coronavirus (COVID-19)(PCR) Negative 12/30/20 17:08: Hemoglobin 9.7L, Hematocrit 29L 12/31/20 06:04: Hemoglobin 9.0L, Hematocrit 27L Assessment/Plan Assessment/Plan Assess & Plan/Chief Complaint Upper GI bleed secondary diffuse gastritis. cont PPI and carafate. PUD diet. MATHIEU LEVY MD Dec 31, 2020 12:26
--- NOTE | 2020-12-31 13:42 | Occupational Therapy Eval ---
OT Evaluation-General/PLF Medical Diagnosis Admission Date Dec 28, 2020 at 20:50 Medical Diagnosis: GI bleed/anemia Onset Date: Dec 28, 2020 Therapy Diagnosis Therapy Diagnosis: Decreased ADL status Height/Weight Height (Feet): 5 Height (Inches): 3.00 Weight (Pounds): 147 Precautions Precautions/Isolations: Fall Prevention, Standard Precautions Weight Bear Status Weight Bearing Restriction: Weight Bearing/Tolerated Referral Physician: Justine Referral Reason: Activity Tolerance, Self Care, Evaluation/Treatment, Strengthening/ROM Medical History Pertinent Medical History: CAD, HTN, PVD Additional Medical History HTN, HLD, Enphc-Qnksdreprw-Xjphk disease, CAD, high chol, PVD Current History Sick wed night with acute upper GI bleed Dec 29. Pt admits to hospital Dec 29. Reviewed History: Yes Social History Home: [facility] Current Living Status: Alone Entry Into Home: Level Entry Pt lives alone in walk out basement, pt states when family comes to visit they stay upstairs. However, pt has accessible shower/ laundry/ all needs in base [place]. ADL-Prior Level of Function SCALE: Activities may be completed with or without assistive devices. 1-Uzuqsdvfxw-scmxfob completes the activity by him/herself with no assistance from a helper. 5-Set-up or Clean-up Assistance-helper sets up or cleans up; patient completes activity. [place] assists only prior to or following the activity. 4-Supervision or Touching Assistance-helper provides verbal cues and/or touching/steadying and/or contact guard assistance as patient completes activity. Assistance may be provided throughout the activity or intermittently. 3-Partial/Moderate Assistance-helper does LESS THAN HALF the effort. [place] lifts, holds or supports trunk or limbs, but provides less than half the effort. 2-Substantial/Maximal Assistance-helper does MORE THAN HALF the effort. [place] lifts or holds trunk or limbs and provides more than half the effort. 1-Owhxdnghr-ucyvrs does ALL the effort. Patient does none of the effort to complete the activity. Or, the assistance of 2 or more helpers is required for the patient to complete the activity. If activity was not attempted, code reason: 7-Patient Refused. 9-Not Applicable-not attempted and the patient did not perform the activity before the current illness, exacerbation or injury. 10-Not Attempted due to Environmental Limitations-(lack of equipment, weather restraints, etc.). 88-Not Attempted due to Medical Conditions or Safety Concerns. ADL PLOF Comments IND without AD. Self Care: Independent Functional Cognition: Independent DME/Equipment: Bath Chair, Grab Bars, Shower, Tall Toilet DME/Equipment Comments walker, gbs, sc, walk in shower. 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 Pt agrees to OT eval/ treat. Mental Status/Objective Patient Orientation: Person, Place, Situation, Normal For Age Attachments: IV Current Glasses/Contacts: No Hearing Aids: No Dentures/Partials: No Hand Dominance: Right Upper Extremity ROM WFL BUE Upper Extremity Coordination WFL BUE Upper Extremity Sensation WFL BUE Upper Extremity Strength WFL BUE (4/5 bilaterally) Edema: none noted. ADL-Treatment Eating (QC): 6 (IND, though on modified diet.) Upper Body Dressing (QC): 6 (per pt and clinical judgment) Lower Body Dressing (QC): 6 (per pt and clinical judgment) On/Off Footwear (QC): 6 (complete with IND edge of chair) Toileting Hygiene (QC): 6 (per pt and clinical judgment) Other Treatments Pt AxO. Sit to stand with SBA, walker level. Returns to sit. MMT/ ROM WFL. Pt completes sock donning/ doffing, states IND with bottom care. Pt has support from son, Alphonse, if needed in town, though from fx OT stand-point pt at PLOF with all ADLs. Pt agrees. D/c OT. Education OT Patient Education: Progress toward Goal/Update tx plan, Purpose of tx/functional activities, Safety issues Teaching Recipient: Patient Teaching Methods: Demonstration, Discussion Response to Teaching: Verbalize Understanding, Return Demonstration OT Digital Forensics Examiner Goals Digital Forensics Examiner Goals 1=Demonstrate adherence to instructed precautions during ADL tasks. 2=Patient will verbalize/demonstrate understanding of assistive devices/modifications for ADL. 3=Patient will improve strength/tolerance for activity to enable patient to perform ADL's. OT Education/Plan Problem List/Assessment Assessment: No Skilled OT Needs ID'd Discharge Recommendations Plan/Recommendations: Discharge/Goals Met Treatment Plan/Plan of Care Treatment,Training & Education: Yes Patient would benefit from OT for education, treatment and training to promote independence in ADL's, mobility, safety and/or upper extremity function for ADL's. Plan of Care: OTHER (evqal and d/c. ) Treatment Duration: Dec 31, 2020 Frequency: 1 time per week (eval and d/c.) Rehab Potential: Fair Time/GCodes Start Time: 11:54 Stop Time: 12:06 Total Time Billed (hr/min): 12 Billed Treatment Time 1, EVL (12) d/c. PAGE MEIER OTR Dec 31, 2020 13:42
[2020-12-31 15:54] LABS: HEMOGLOBIN 9.3 g/dL (11.5-16.0)
[2020-12-31 16:00] VITALS: BP 147/65
[2020-12-31 20:00] VITALS: BP 118/57
[2020-12-31] MEDS: PANTOPRAZOLE 40 MG (PROTONIX) TAB PO SCH (20:54)
[2021-01-01 00:42] VITALS: BP 121/59
[2021-01-01 04:13] VITALS: BP 148/67
[2021-01-01] MEDS: SUCRALFATE 1 GM (CARAFATE) TAB PO SCH ×2 (05:14→12:22)
[2021-01-01 05:29] LABS: HEMOGLOBIN 7.3 g/dL (11.5-16.0)
[2021-01-01 08:14] VITALS: BP 163/71
[2021-01-01] MEDS: hydrALAZINE (APRESOLINE) 25 MG TAB PO SCH (09:21)
[2021-01-01] MEDS: PANTOPRAZOLE 40 MG (PROTONIX) TAB PO SCH (09:21)
[2021-01-01] MEDS: meTOproloL SUCCINATE 50 MG (TOPROL XL) TAB PO SCH (09:21)
[2021-01-01] MEDS: LOSARTAN 100 MG (COZAAR) TABLET PO SCH (09:21)
[2021-01-01 10:10] LABS: MEAN PLATELET VOLUME 12.1 fL (9.0-12.2); WHITE BLOOD COUNT 8.2 10^3/uL (4.3-11.0)
--- NOTE | 2021-01-01 10:46 | Physical Therapy Daily Note ---
PT Daily Note-Current Subjective Patient in recliner pre tx, agrees to PT, has no complaints of pain. Appearance Patient in recliner post tx with nurse call, phone, tray, family in room. Mental Status Patient Orientation: Person, Place, Situation Transfers SCALE: Activities may be completed with or without assistive devices. 3-Pvwkrfjgeo-avrdxfz completes the activity by him/herself with no assistance from a helper. 5-Set-up or Clean-up Assistance-helper sets up or cleans up; patient completes activity. [place] assists only prior to or following the activity. 4-Supervision or Touching Assistance-helper provides verbal cues and/or to uching/steadying and/or contact guard assistance as patient completes activity. Assistance may be provided throughout the activity or intermittently. 3-Partial/Moderate Assistance-helper does LESS THAN HALF the effort. [place] lifts, holds or supports trunk or limbs, but provides less than half the effort. 2-Substantial/Maximal Assistance-helper does MORE THAN HALF the effort. [place] lifts or holds trunk or limbs and provides more than half the effort. 6-Pcqhxfrrq-yqfqlz does ALL the effort. Patient does none of the effort to complete the activity. Or, the assistance of 2 or more helpers is required for the patient to complete the activity. If activity was not attempted, code reason: 7-Patient Refused. 9-Not Applicable-not attempted and the patient did not perform the activity before the current illness, exacerbation or injury. 10-Not Attempted due to Environmental Limitations-(lack of equipment, weather restraints, etc.). 88-Not Attempted due to Medical Conditions or Safety Concerns. Sit to Stand (QC): 4 Chair/Cnw-sh-Ojqst Xfer(QC): 4 SBA Gait Training Distance: 100' Walk 10 feet (QC): 4 Walk 50 ft with 2 Turns(QC): 4 Gait Persons Needed: 1 Gait Assistive Device: FWW SBA, patient didn't want to go into the hallway so she walked about in her room, had many turns because of this and she was able to ambulate in a somewhat cramped space without LOB Exercises Seated Therapy Exercises: Ankle pumps, Long arc quads Seated Reps: 20 Treatments transfers, ambulation, LE exercise Assessment Current Status: Fair Progress steady ambulation PT Mcc Goals Ginner Goals PT Ginner Goals Time Frame: Jan 11, 2021 Roll Left & Right (QC): 6 Sit to Lying (QC): 6 Lying-Sitting on Side/Bed(QC): 6 Sit to Stand (QC): 6 Chair/Gdk-aw-Qkkja Xfer(QC): 6 Toilet Transfer (QC): 6 Does the Patient Walk: Yes Walk 10 feet (QC): 6 Walk 50ft with 2 Turns (QC): 6 Walk 150 ft (QC): 6 PT Plan Problem List Problem List: Activity Tolerance, Functional Strength, Safety, Balance, Gait, Transfer, Bed Mobility Treatment/Plan Treatment Plan: Continue Plan of Care Treatment Plan: Bed Mobility, Education, Functional Activity Iftikhar, Functional Strength, Gait, Safety, Therapeutic Exercise, Transfers Treatment Duration: Jan 11, 2021 Frequency: 6 times per week Estimated Hrs Per Day: .25 hour per day Safety Risks/Education Patient Education: Gait Training, Transfer Techniques, Correct Positioning, Safety Issues Teaching Recipient: Patient Teaching Methods: Demonstration, Discussion Response to Teaching: Reinforcement Needed Time/GCodes Time In: 1012 Time Out: 1013 Total Billed Treatment Time: 11 Total Billed Treatment 1 visit GT 11' BERNARDINO DIAZ PT Jan 01, 2021 10:46
[2021-01-01 12:01] VITALS: BP 138/62
--- NOTE | 2021-01-01 12:08 | Discharge Inst-Simple/Standard ---
Discharge Inst-Standard Discharge Medications New, Converted or Re-Newed RX: RX on Chart Patient Instructions/Follow Up Plan of Care/Instructions/FU: Please continue to take your medications as written. Please follow up with your primary care doctor to follow up this hospital stay. Activity as Tolerated: Yes Discharge Diet: Other Diet ([place] diet) Return to The Hospital For: Dark or bloody stools or vomit, weakness, passing out, chest pain, shortness of breath, fever, confusion, if you feel you are getting worse. PRITESH DAVIS MD Jan 01, 2021 12:08
--- NOTE | 2021-01-01 12:19 | Discharge Summary ---
Diagnosis/Chief Complaint Date of Admission Dec 28, 2020 at 20:50 Date of Discharge Discharge Date: Jan 01, 2021 Admission Diagnosis acute upper GI bleeding Primary Care Soren Teague MD Discharge Diagnosis (1) Acute upper GI bleeding Status: Acute (2) Melena Status: Acute (3) Coffee ground emesis Status: Acute (4) ABLA (acute blood loss anemia) Status: Acute (5) HTN (hypertension) Status: Chronic (6) Adrenal incidentaloma Status: Acute Discharge Summary Procedures/Consulations Dr Cunningham- Surgery Discharge Physical Exam Allergies: Coded Allergies: Penicillins (Verified Allergy, Unknown, 08/29/17) hydrochlorothiazide (Verified Allergy, Unknown, 08/29/17) Vitals & I&Os Vital Signs Date Time Temp Pulse Resp B/P (MAP) Pulse Ox O2 Delivery O2 Flow Rate FiO2 01/01/21 15:35 36.4 56 16 138/62 99 Room Air 12/31/20 08:00 10.00 General Appearance: No Apparent Distress, WD/WN Respiratory: Lungs Clear Cardiovascular: Regular Rate, Rhythm, No Murmur Neurologic/Psychiatric: Alert, Oriented x3 Hospital Course Pt was admitted due to acute upper GI bleeding. She dropped her hemoglobin to 4.7 and required 3 units of pRBCS and her hemboglobin improved. She remained hemodynamically stable throughout all of this though. She underwent EGD which should esophagitis and gastritis without formal ulceration. Her hemoglobin stabilized around 8-9 and she felt much better. She was discharged home in stable condition to follow up with Dr Burns tomorrow as previously scheduled and with her PCP Dr Teague on Wednesday. I called and spoke with DAVID Miles regarding this admission. Labs (last 24 hrs) Patient resulted labs reviewed. Pending Labs Imaging: Reviewed Imaging Report Discussion & Recommendations Discharge Planning: >30 minutes discharge planning Discharge Home Medications: Active Scripts Active Reported Systane Complete (Propylene Glycol) 1.5 Ml Drops 1 Drop OU DAILY Tylenol (Acetaminophen) 325 Mg Tablet 650 Mg PO Q6H PRN TAKES 2 (325MG) TABLETS Hydralazine HCl 25 Mg Tablet 25 Mg PO BID Metoprolol Succinate 50 Mg Tab.er.24h 25 Mg PO HS TAKES 1/2 (50MG) TABLET Rosuvastatin Calcium 10 Mg Tablet 10 Mg PO HS Irbesartan 300 Mg Tablet 300 Mg PO DAILY Instructions to patient/family Please see electronic discharge instructions given to patient. Copy Copies To 1: ALIYAH PARDO KATELYN M MD Jan 01, 2021 12:19
--- NOTE | 2021-01-01 14:24 | Progress Note ---
Subjective Date Seen by a Provider: Jan 01, 2021 Time Seen by a Provider: 14:00 Subjective/Events-last exam doing ok. tolerating diet. stools more brown. no abd pain. Objective Exam Vital Signs Date Time Temp Pulse Resp B/P (MAP) Pulse Ox O2 Delivery O2 Flow Rate FiO2 01/01/21 12:01 36.4 71 16 138/62 (87) 99 Room Air 01/01/21 08:14 36.2 63 18 163/71 (101) 98 Room Air 01/01/21 08:00 99 Room Air 01/01/21 04:13 36.2 70 18 148/67 (94) 99 Room Air 01/01/21 01:00 56 01/01/21 00:42 36.9 65 18 121/59 (79) 97 Room Air 12/31/20 20:50 Room Air 12/31/20 20:00 36.6 68 20 118/57 (77) 97 Room Air 12/31/20 19:00 74 12/31/20 16:00 36.3 64 18 147/65 (92) 97 Room Air I & O 01/01/21 07:00 Intake Total 1600 ml Output Total 1800 ml Balance -200 ml Capillary Refill : Less Than 3 Seconds General Appearance: No Apparent Distress HEENT: PERRL/EOMI Neck: Full Range of Motion Respiratory: Chest Non Tender, Lungs Clear, Normal Breath Sounds Cardiovascular: Regular Rate, Rhythm Gastrointestinal: normal bowel sounds, non tender, soft Extremity: Normal Capillary Refill Neurologic/Psychiatric: Alert, Oriented x3 Skin: Normal Color Lymphatic: No Adenopathy Results Lab Laboratory Tests 12/31/20 15:40: Hemoglobin 9.3L, Hematocrit 28L 01/01/21 04:55: Hemoglobin 7.3#L, Hematocrit 23L 01/01/21 10:00: Hemoglobin 8.0L, Hematocrit 25L, White Blood Count 8.2, Red Blood Count 2.66L, Mean Corpuscular Volume 92, Mean Corpuscular Hemoglobin 30, Mean Corpuscular Hemoglobin Concent 33, Red Cell Distribution Width 15.4H, Platelet Count 175, Mean Platelet Volume 12.1 Assessment/Plan Assessment/Plan Assess & Plan/Chief Complaint Upper GI bleed secondary diffuse gastritis. cont PPI and carafate. PUD diet. home soon. MATHIEU LEVY MD Jan 01, 2021 14:24
--- NOTE | 2021-01-01 14:25 | Discharge Inst-Surgical ---
D/C Lap Instructions-KIDO New, Converted, or Re-Newed RX: RX on Chart Follow Up Appt in 2 weeks Activity as tolerated protonix daily and carafate 2 weeks. Avoid Alcohol, Caffeine, Spicy Chloride and Acid foods. Drink 64 fluid oz or more of fluids per day. Symptoms to Report: Fever over 101 degree F, Nausea/Vomiting If any problems/questions: Contact your physician or go to Emergency Room MATHIEU LEVY MD Jan 01, 2021 14:25
[2021-01-01 15:35] VITALS: BP 138/62
--- NOTE | 2021-01-08 01:50 | Physician Query Clarification ---
PQ-Link Manifestation-Etiology Admission/Discharge Admission Date: Dec 28, 2020 at 20:50 Discharge Date: Jan 01, 2021 at 15:35 PRITESH Jaime MD The medical record reflects the following clinical scenario: History/Risk Factors: [list no more than 2] Clinical Findings: [list no more than 2] Treatment: [list no more than 2] Question: Can you specify if the [manifestation] is due to/associated with [ etiology]? Please document a response in the Progress Note or Discharge Summary. 1. Yes - [Manifestation] is due to/associated with [etiology]. 2. No - [Manifestation] is not due to/associated with [etiology]. 3. Other, with explanation of the clinical findings. 4. Clinically undetermined, no explanation for the clinical findings. Please remember a lack of response to the above will prompt a phone page by CDI/Coding staff. In responding to this query, please exercise your independent professional judgment. The purpose of this communication is to more accurately reflect the complexity of your patients condition. The fact that a question is asked does not imply that any particular answer is desired or expected. Thank you for your timely response to this clarification. Requestors name: [ ] Phone # [ ] THIS PHYSICIAN QUERY FORM IS A PERMANENT PART OF THE MEDICAL RECORD GENET SÁNCHEZ Jan 08, 2021 01:50
== END 2021-01-01 15:35 | disposition home or self-care (01) | DRG 378 ==
LOC: EDUNIT# 18:43 → ER 18:44 → 4TH 20:50
PROVIDERS: ADMIT Internal Medicine; ATTEND Internal Medicine
PROC: 0DB68ZX Excision of Stomach, Via Natural or Artificial Opening Endoscopic, Diagnostic (ICD-10-PCS; 2020-12-30)
PROC: 0DB48ZX Excision of Esophagogastric Junction, Via Natural or Artificial Opening Endoscopic, Diagnostic (ICD-10-PCS; principal; 2020-12-30 14:06)
DX: K29.71 Gastritis, unspecified, with bleeding (principal); D62 Acute posthemorrhagic anemia; I10 Essential (primary) hypertension; I73.9 Peripheral vascular disease, unspecified; I25.10 Atherosclerotic heart disease of native coronary artery without angina pectoris; E78.00 Pure hypercholesterolemia, unspecified; Z20.822 Contact with and (suspected) exposure to COVID-19; K44.9 Diaphragmatic hernia without obstruction or gangrene; K21.00 Gastro-esophageal reflux disease with esophagitis, without bleeding; Z95.820 Peripheral vascular angioplasty status with implants and grafts; Z88.0 Allergy status to penicillin
CPT/HCPCS: 36415; 71045; 74177; 80048; 80053; 81000; 82150; 82962; 83735; 84484; 85007; 85014; 85018; 85025; 85027; 85610; 85730; 86850; 86900; 86901; 86920; 87635; 88305; 88342; 93005; 93041; 94760; 96361; 96374; 96375

== ENCOUNTER 2021-01-06 10:20 | Inpatient (IN) | payer MEDICARE ==
[2021-01-06] VITALS (10 sets, daily range): BP systolic 127–185; BP diastolic 62–79
[~2021-01-06] VITALS: Ht 160 cm; Wt 56.7 kg
[~2021-01-06 10:20] MED LIST changes: +ACET325T38 PO; +ASPI-1238 PO; +HYDR-3923 PO; +METO50TA7 PO; +PROP1.5D OU
[2021-01-06 10:43] LABS: BASOPHILS % (AUTO) 0 % (0-10); EOSINOPHILS # (AUTO) 0.1 10^3/uL (0.0-0.3); EOSINOPHILS % (AUTO) 1 % (0-10); LYMPHOCYTES # (AUTO) 1.6 10^3/uL (1.0-4.0); LYMPHOCYTES % (AUTO) 17 % (12-44); MEAN CORPUSCULAR HGB CONC 30 g/dL (32-36); MEAN CORPUSCULAR VOLUME 99 fL (80-99); MEAN PLATELET VOLUME 11.3 fL (9.0-12.2); MONOCYTES # (AUTO) 0.9 10^3/uL (0.0-1.0); MONOCYTES % (AUTO) 9 % (0-12); NEUTROPHILS # (AUTO) 6.6 10^3/uL (1.8-7.8); NEUTROPHILS % (AUTO) 71 % (42-75); PLATELET COUNT 217 10^3/uL (130-400); WHITE BLOOD COUNT 9.3 10^3/uL (4.3-11.0)
--- NOTE | 2021-01-06 10:43 | ED General ---
General Chief Complaint: Abdominal/GI Problems Stated Complaint: GI BLEED Nursing Triage Note: PT BROGUHT IN BY [facility] FROM HOME WITH COMPLAINT OF LOW HGB. PT HAD BLOOD DRAWN THIS AM AND HGB WAS 4.7. PT WAS DISCHARGED 4 DAYS AGO FROM HOSPITAL FOR GI BLEED. Nursing Sepsis Screen: No Definite Risk Source of Information: Patient Exam Limitations: No Limitations History of Present Illness Date Seen by Provider: Jan 06, 2021 Time Seen by Provider: 10:30 Initial Comments Patient is an 80-year-old female who presents to the emergency room today with a chief complaint of generalized weakness and low hemoglobin. Patient was reportedly in the hospital last week with GI bleed. She was transfused and had endoscopy by Dr. Cunningham. Patient was returning to the hospital this morning for routine laboratory studies and was called later and told that she had a hemoglobin of 4.8. Patient does admit to a small black stool this morning. She describes a little bit of abdominal discomfort no nausea. She does not feel short of breath. She states that she gets a little bit dizzy with position changes. She denies any recent illnesses such as fevers, chills, cough, congestion. No problems. Patient states that she is unsure if she was sent out on iron supplementation or not. She denies chest pain. All other review of systems reviewed and negative except as stated. Timing/Duration: 1-3 Hours Severity: Severe Allergies and Home Medications Allergies Coded Allergies: Penicillins (Verified Allergy, Unknown, 08/29/17) hydrochlorothiazide (Verified Allergy, Unknown, 08/29/17) Home Medications Hydralazine HCl 25 Mg Tablet, 25 MG PO BID, (Reported) Irbesartan 300 Mg Tablet, 300 MG PO DAILY, (Reported) Metoprolol Succinate 50 Mg Tab.er.24h, 25 MG PO HS, (Reported) TAKES 1/2 (50MG) TABLET Naproxen Sodium 220 Mg Tablet, 220 MG PO DAILY PRN for PAIN-MILD (1-4), (Reported) Pantoprazole Sodium 40 Mg Tablet.dr, 40 MG PO DAILY, (Reported) Propylene Glycol 1.5 Ml Drops, 1 DROP OU DAILY, (Reported) Rosuvastatin Calcium 10 Mg Tablet, 10 MG PO HS, (Reported) Sucralfate 1 Gm Tablet, 1 GM PO QID, (Reported) DISSOLVES IN WATER Patient Home Medication List Home Medication List Reviewed: Yes Review of Systems Review of Systems Constitutional: see HPI EENTM: no symptoms reported Respiratory: no symptoms reported Cardiovascular: no symptoms reported Gastrointestinal: abdominal pain Genitourinary: no symptoms reported : No Musculoskeletal: no symptoms reported Skin: no symptoms reported All Other Systems Reviewed Negative Unless Noted: Yes Past Lwdfcpz-Wpgaed-Ulqxxo Hx Patient Social History Alcohol Use: Denies Use Drug of Choice: DENIES Smoking Status: Never a Smoker Recent Infectious Disease Expo: No Immunizations Up To Date Tetanus Booster (TDap): Unknown Past Medical History Surgeries: Yes (STENT IN RIGHT LEG 2009) Vascular Surgery Respiratory: No 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 oz. 66.493437bu; 23.00 BMI Method:Stated General Appearance: No Apparent Distress, WD/WN Eyes: Bilateral Eye Normal Inspection, Bilateral Eye PERRL, Bilateral Eye EOMI, Bilateral Eye Conjunctivae Pale HEENT: PERRL/EOMI, Moist Mucous Membranes, Pale Conjunctivae (L), Pale Conjunctivae (R) Neck: Normal Inspection Respiratory: Normal Breath Sounds, No Accessory Muscle Use, No Respiratory Distress Cardiovascular: Regular Rate, Rhythm Gastrointestinal: Normal Bowel Sounds, Non Tender, Soft Extremity: Normal Inspection, Normal Range of Motion, Non Tender, No Calf Tenderness Neurologic/Psychiatric: Alert, Oriented x3, No Motor/Sensory Deficits, Normal Mood/Affect, quality systems engineer II-XII Norm as Tested Skin: Warm/Dry, Pallor Progress/Results/Core Measures Suspected Sepsis Recent Fever Within 48 Hours: No Infection Criteria Present: None New/Unexplained Altered Menta: No Sepsis Screen: No Definite Risk SIRS Temperature: Pulse: 91 Respiratory Rate: 26 Laboratory Tests 01/06/21 10:30: White Blood Count 9.3 Blood Pressure 167 /61 Mean: 96 Laboratory Tests 01/06/21 10:30: Creatinine 0.62, Platelet Count 217 Results/Orders Lab Results Laboratory Tests Test 01/06/21 10:30 Range/Units White Blood Count 9.3 4.3-11.0 10^3/uL Red Blood Count 1.73 L 3.80-5.11 10^6/uL Hemoglobin 5.1 #*L 11.5-16.0 g/dL Hematocrit 17 *L 35-52 % Mean Corpuscular Volume 99 80-99 fL Mean Corpuscular Hemoglobin 29 25-34 pg Mean Corpuscular Hemoglobin Concent 30 L 32-36 g/dL Red Cell Distribution Width 18.5 H 10.0-14.5 % Platelet Count 217 130-400 10^3/uL Mean Platelet Volume 11.3 9.0-12.2 fL Immature Granulocyte % (Auto) 1 % Neutrophils (%) (Auto) 71 42-75 % Lymphocytes (%) (Auto) 17 12-44 % Monocytes (%) (Auto) 9 0-12 % Eosinophils (%) (Auto) 1 0-10 % Basophils (%) (Auto) 0 0-10 % Neutrophils # (Auto) 6.6 1.8-7.8 10^3/uL Lymphocytes # (Auto) 1.6 1.0-4.0 10^3/uL Monocytes # (Auto) 0.9 0.0-1.0 10^3/uL Eosinophils # (Auto) 0.1 0.0-0.3 10^3/uL Basophils # (Auto) 0.0 0.0-0.1 10^3/uL Immature Granulocyte # (Auto) 0.1 0.0-0.1 10^3/uL Sodium Level 141 135-145 MMOL/L Potassium Level 3.9 3.6-5.0 MMOL/L Chloride Level 110 H 98-107 MMOL/L Carbon Dioxide Level 22 21-32 MMOL/L Anion Gap 9 5-14 MMOL/L Blood Urea Nitrogen 15 7-18 MG/DL Creatinine 0.62 0.60-1.30 MG/DL Estimat Glomerular Filtration Rate > 60 BUN/Creatinine Ratio 24 Glucose Level 95 70-105 MG/DL Calcium Level 7.9 L 8.5-10.1 MG/DL My Orders Orders - CORINNA WILEY MD Cbc With Automated Diff (01/06/21 10:28) Type And Screen (01/06/21 10:28) Red Cells Leukocytes Reduced (01/06/21 10:28) Basic Metabolic Panel (01/06/21 10:28) Ed Iv/Invasive Line Start (01/06/21 10:28) Pantoprazole Injection (Protonix Injecti (01/06/21 11:15) Vital Signs/I&O 01/06/21 10:23 Temp 36.3 Pulse 91 Resp 26 B/P (MAP) 167/61 (96) Pulse Ox 98 Capillary Refill : Less Than 3 Seconds Blood Pressure Mean: 96 Departure Communication (Admissions) Time/Spoke to Admitting Phy: 11:[address] Abernathy who accepts patient for admission Time/Spoke to Consulting Phy: 11:[address] Cunningham Impression Primary Impression: ABLA (acute blood loss anemia) Additional Impression: GI bleed Qualified Codes: K92.2 - Gastrointestinal hemorrhage, unspecified Disposition: 09 ADMITTED INPATIENT Condition: Stable Admissions Decision to Admit Reason: Admit from ER (General) Decision to Admit/Date: Jan 06, 2021 Time/Decision to Admit Time: 11:18 Departure-Patient Inst. Referrals: BEN RAMOS MD (PCP/Family) Primary Care Physician CORINNA WILEY MD Jan 06, 2021 10:43
[2021-01-06 10:48] LABS: MEAN CORPUSCULAR HEMOGLOBIN 29 pg (25-34)
[2021-01-06 10:49] LABS: HEMATOCRIT 17 % (35-52); HEMOGLOBIN 5.1 g/dL (11.5-16.0)
[2021-01-06 10:57] LABS: BUN/CREATININE RATIO 24; CALCIUM 7.9 MG/DL (8.5-10.1); CARBON DIOXIDE 22 MMOL/L (21-32); CHLORIDE 110 MMOL/L (98-107); CREATININE SERUM 0.62 MG/DL (0.60-1.30); GFR ESTIMATED > 60; GLUCOSE 95 MG/DL (70-105); POTASSIUM 3.9 MMOL/L (3.6-5.0); SODIUM 141 MMOL/L (135-145)
[2021-01-06] MEDS ORDERED: PANTOPRAZOLE 40 MG (PROTONIX) VIAL IV ONE (11:15)
[2021-01-06] MEDS ORDERED: MELATONIN 3 MG TABLET PO PRN (12:15)
[2021-01-06] MEDS ORDERED: ONDANSETRON 4 MG/2 ML (SDV) Z0FRAN IV PRN (12:15)
[2021-01-06] MEDS ORDERED: polyethylene glycoL POWDER 17 GM (MIRALAX) PACK PO PRN (12:15)
[2021-01-06] MEDS ORDERED: ONDANSETRON 4 MG (ZOFRAN) ORAL DISSOLVE TAB PO PRN (12:15)
[2021-01-06] MEDS ORDERED: diphenhydrAMINE 25 MG TAB (BENADRYL) PO PRN (12:15)
[2021-01-06] MEDS ORDERED: BISACODYL 10 MG SUPP (DULCOLAX) PR PRN (12:15)
[2021-01-06] MEDS ORDERED: ACETAMINOPHEN 325 MG TABLET PO PRN (12:15)
[2021-01-06] MEDS ORDERED: ANTACID SUSP 30 ML UDC (MYLANTA) PO PRN (12:15)
[2021-01-06] MEDS ORDERED: CATHETER FLUSH 10 ML SYR IV PRN (12:15)
[2021-01-06] MEDS ORDERED: NS IV 1000 ML 1,000 ML ONE (12:21)
[2021-01-06] MEDS ORDERED: PANT40TA52 PO (14:05)
[2021-01-06] MEDS ORDERED: NAPR220T66 PO (14:05)
[2021-01-06] MEDS ORDERED: SUCR1TAB PO (14:05)
[2021-01-06] MEDS: CATHETER FLUSH 10 ML SYR IV SCH ×2 (14:08→20:07)
--- NOTE | 2021-01-06 14:09 | Physical Therapy Progress Note ---
Therapy Progress Note Patient receiving PRBC due to critical Hgb. PT to begin in [facility] [place] PT Jan 06, 2021 14:09
--- NOTE | 2021-01-06 14:50 | Occ Therapy Progress Note ---
Therapy Progress Note OT order received. Pt. with critically low hemoglobin. Receiving PRBC. Will check back in a.m. [id number] NOEMÍ HERNANDEZ OT Jan 06, 2021 14:50
--- NOTE | 2021-01-06 17:03 | CONSULTATION REPORT ---
DATE OF SERVICE: 01/06/2021 ATTENDING PRIMARY CARE PHYSICIAN: Dr. Soren Teague. ADMITTING PHYSICIAN: Dr. Rema Abernathy. HISTORY OF PRESENT ILLNESS: The patient is an 80-year-old female, who was recently admitted on 12/28/2020, for dark stools. She was also found to be slightly anemic with admission hemoglobin of 9.2. She was resuscitated and her hemoglobin did increase appropriately and was stable. She did undergo an EGD on 12/31/2020, which showed clotted blood within the stomach. A small hiatal hernia 2 cm in size as well as a diffuse gastritis encompassing the majority of the body of the stomach; however, there did not appear to be any active bleeding and the duodenum appeared normal with no ulcerations or any blood. She was treated medically with PPI acid reducers as well as Carafate and was started on a diet, which she was able to tolerate and she was able to have regular bowel movements as well and was discharged home. She returned today after feeling a slightly pale and weak as well as diaphoretic, early this morning, she had a CBC drawn with a hemoglobin of 5.1. She does not report any episodes of dark tarry stools or any red blood per rectum as well as no nausea or vomiting. She also does not have any abdominal pain. She states that she has been taking her Protonix and Carafate at home regularly. PAST MEDICAL HISTORY: Hypertension, peripheral vascular disease, coronary artery disease, hypertension, hypercholesterolemia. PAST SURGICAL HISTORY: Lower extremity arterial angioplasty and stent placement. ALLERGIES: PENICILLIN, HYDROCHLOROTHIAZIDE. MEDICATIONS: Amlodipine 5 mg daily, aspirin 81 mg daily, irbesartan 300 mg daily, nebivolol 10 mg daily, Rosuvastatin 10 mg daily. SOCIAL HISTORY: Negative smoke, negative alcohol. FAMILY HISTORY: Noncontributory. VITAL SIGNS: Temperature 36.9, blood pressure 161/66, pulse 74, respirations 20, pulse ox 98% on room air. REVIEW OF SYSTEMS: Well-nourished female currently in no acute distress. She is not experiencing any shortness of breath or difficulty breathing. No chest pain, palpitations, diaphoresis. No nausea, vomiting. No diarrhea, constipation. No red blood per rectum. No dark tarry stools. No fever, chills. No recent inadvertent weight loss. All other review of systems negative. PHYSICAL EXAMINATION: CHEST: Clear. Good breath sounds bilaterally. HEART: Regular, no murmurs. EXTREMITIES: No lower extremity edema, negative Homans sign. HEENT: No scleral icterus. NECK: No cervical lymphadenopathy. ABDOMEN: Soft, nontender, nondistended. SKIN: Warm, dry. LABORATORY DATA: WBC 9.3, hemoglobin 5.1, hematocrit 17, platelets 217. BUN 15, creatinine 0.62. ASSESSMENT AND PLAN: An 80-year-old female with symptomatic anemia and likely upper GI bleed. She underwent a recent EGD and was found to have old clotted blood within the stomach, which was irrigated as well as possible and suctioned out; however, no active bleeding was identified and she was given the diagnosis of diffuse gastritis. We do feel that her anemia at this time around is secondary to an upper gastrointestinal source. However, are uncertain where the source may be. Due to this episode we will get a nuclear medicine tagged RBC scan and continue with resuscitation and monitoring her hemoglobin and once her hemoglobin and clinical status are stable, we will then proceed with an EGD as well as intervention if indicated. Job ID: [id number] DocumentID: [id number] Dictated Date: 01/06/2021 16:50:35 Assistant Football Coach Date: 01/06/2021 17:02:28 Dictated By: MATHIEU LEVY MD
[2021-01-06] MEDS: PANTOPRAZOLE 40 MG (PROTONIX) VIAL IV SCH (20:04)
[2021-01-06] MEDS: hydrALAZINE (APRESOLINE) 25 MG TAB PO SCH (20:04)
[2021-01-06] MEDS: meTOproloL SUCCINATE 50 MG (TOPROL XL) TAB PO SCH (20:04)
[2021-01-07 04:12] VITALS: BP 160/70
[2021-01-07] MEDS: CATHETER FLUSH 10 ML SYR IV SCH ×3 (05:10→21:10)
[2021-01-07 05:45] LABS: BASOPHILS % (AUTO) 1 % (0-10); EOSINOPHILS # (AUTO) 0.3 10^3/uL (0.0-0.3); EOSINOPHILS % (AUTO) 5 % (0-10); HEMATOCRIT 25 % (35-52); LYMPHOCYTES # (AUTO) 1.6 10^3/uL (1.0-4.0); LYMPHOCYTES % (AUTO) 24 % (12-44); MEAN CORPUSCULAR HEMOGLOBIN 29 pg (25-34); MEAN CORPUSCULAR HGB CONC 32 g/dL (32-36); MEAN CORPUSCULAR VOLUME 93 fL (80-99); MEAN PLATELET VOLUME 11.2 fL (9.0-12.2); MONOCYTES # (AUTO) 0.7 10^3/uL (0.0-1.0); MONOCYTES % (AUTO) 11 % (0-12); NEUTROPHILS # (AUTO) 3.9 10^3/uL (1.8-7.8); NEUTROPHILS % (AUTO) 59 % (42-75); PLATELET COUNT 202 10^3/uL (130-400); WHITE BLOOD COUNT 6.6 10^3/uL (4.3-11.0)
[2021-01-07 08:00] VITALS: BP 179/77
[2021-01-07] MEDS: hydrALAZINE (APRESOLINE) 25 MG TAB PO SCH ×2 (08:08→21:09)
[2021-01-07] MEDS: PANTOPRAZOLE 40 MG (PROTONIX) VIAL IV SCH ×2 (08:08→21:09)
--- NOTE | 2021-01-07 10:19 | Physical Therapy Evaluation ---
PT Evaluation-General Medical Diagnosis Admission Date Jan 06, 2021 at 11:31 Medical Diagnosis: symptomic anemia/GI bleed Onset Date: Jan 06, 2021 Therapy Diagnosis Therapy Diagnosis: debility Height/Weight Height (Feet): 5 Height (Inches): 3.00 Weight (Pounds): 147 Precautions Precautions/Isolations: Standard Precautions Referral Physician: Josemanuel Reason for Referral: Evaluation/Treatment Medical History Pertinent Medical History: CAD, HTN, PVD Current History EMS secondary to critically low Hgb Reviewed History: Yes Social History Home: Single Level Current Living Status: Alone Prior Prior Level of Function SCALE: Activities may be completed with or without assistive devices. 2-Hzeiundlwh-drmwmpg completes the activity by him/herself with no assistance from a helper. 5-Set-up or Clean-up Assistance-helper sets up or cleans up; patient completes activity. [place] assists only prior to or following the activity. 4-Supervision or Touching Assistance-helper provides verbal cues and/or touching/steadying and/or contact guard assistance as patient completes activity. Assistance may be provided throughout the activity or intermittently. 3-Partial/Moderate Assistance-helper does LESS THAN HALF the effort. [place] lifts, holds or supports trunk or limbs, but provides less than half the effort. 2-Substantial/Maximal Assistance-helper does MORE THAN HALF the effort. [place] lifts or holds trunk or limbs and provides more than half the effort. 0-Affrbiroh-tipguo does ALL the effort. Patient does none of the effort to complete the activity. Or, the assistance of 2 or more helpers is required for the patient to complete the activity. If activity was not attempted, code reason: 7-Patient Refused. 9-Not Applicable-not attempted and the patient did not perform the activity before the current illness, exacerbation or injury. 10-Not Attempted due to Environmental Limitations-(lack of equipment, weather restraints, etc.). 88-Not Attempted due to Medical Conditions or Safety Concerns. Bed Mobility: 6 Transfers (B,C,W/C): 6 Gait: 6 Stairs: 6 Indoor Mobility (Ambulation): Independent Stairs: Independent Prior Devices Use: Walker PT Evaluation-Current Subjective Patient agrees to PT, however, adamantly declined ambulating in hallway. Objective Patient Orientation: Normal For Age ROM/Strength ROM Lower Extremities bilateral LE WFL Strength Lower Extremities 4/5 grossly bilateral LE Integumentary/Posture Integumentary refer to nursing notes Bowel Incontinence: No Bladder Incontinence: No Posture WFL Neuromuscular (Tone, Coordination, Reflexes) grossly intact Sensory Vision: Functional Hearing: Functional Sensation Right Lower Extremit: Intact Sensation Left Lower Extremity: Intact Transfers Roll Left to Right (QC): 6 Sit to Lying (QC): 6 Lying to Sitting/Side of Bed(Q: 6 Sit to Stand (QC): 5 Chair/Ogk-rt-Nzhbf Xfer(QC): 5 Toilet Transfer (QC): 5 Gait Does the Patient Walk?: Yes Mode of Locomotion: Walk Anticipated Mode of Locomotion: Walk Walk 10 feet (QC): 5 Walk 50 ft with 2 Turns(QC): 5 Walk 150 ft (QC): 5 Gait Assistive Device: FWW Comments/Gait Description safe and functional with no deviation Wheelchair Training Does the Pt Use a Wheelchair?: No Balance Sitting Static: Normal Sitting Dynamic: Normal Standing Static: Normal Standing Dynamic: Normal Picking up an Object (QC): 6 Assessment/Needs 80 y.o. female, will be seen short term by skilled PT to address functional mobility to ensure patient remains at independent LOF. Rehab Potential: Fair PT Short Term Goals Short Term Goals Time Frame: Jan 10, 2021 Roll Left & Right: 6 Sit to lyin Lying to sitting on side of be: 6 Sit to stand: 6 Chair/sxf-ah-tgwaq transfer: 6 Toilet transfer: 6 Walk 10 feet: 6 Walk 50 feet with two turns: 6 Walk 150 feet: 6 PT Plan Treatment/Plan Treatment Plan: Continue Plan of Care Treatment Plan: Education, Functional Activity Iftikhar, Gait, Safety, Therapeutic Exercise, Transfers Treatment Duration: Jan 10, 2021 Frequency: 4 times per week Estimated Hrs Per Day: .25 hour per day Patient and/or Family Agrees t: Yes Discharge Recommendations Therapy Discharge Recommendati: Home & Family Time/GCodes Time In: 847 Time Out: 859 Total Billed Treatment Time: 12 Total Billed Treatment 1 visit EVModC 12 min VIDAL ROD PT Jan 07, 2021 10:19
[2021-01-07] MEDS ORDERED: HEParin (CENTRAL IV FLUSH) 500 UNIT/5 ML SYR ONE (11:25)
--- NOTE | 2021-01-07 11:42 | Progress Note ---
Subjective Date Seen by a Provider: Jan 07, 2021 Time Seen by a Provider: 11:00 Subjective/Events-last exam doing better today. Hb appropriate after 2 units at 8.0. had one very small dark stool this am. no abd pain. Objective Exam Vital Signs Date Time Temp Pulse Resp B/P (MAP) Pulse Ox O2 Delivery O2 Flow Rate FiO2 01/07/21 08:00 Room Air 01/07/21 08:00 36.4 63 20 179/77 (111) 96 Room Air 01/07/21 04:12 36.2 66 18 160/70 (100) 97 Room Air 01/07/21 01:00 63 01/06/21 23:16 36.9 63 18 127/62 (83) 97 Room Air 01/06/21 20:00 36.9 81 19 175/75 (108) 96 Room Air 01/06/21 19:43 37.2 56 185/72 01/06/21 19:40 Room Air 01/06/21 19:00 105 01/06/21 17:55 37.1 83 20 152/77 97 Room Air 01/06/21 17:30 37.0 84 18 155/79 98 Room Air 01/06/21 16:00 36.9 74 20 161/66 (97) 98 Room Air 01/06/21 15:47 Room Air 01/06/21 15:25 36.4 80 18 164/66 98 Room Air 01/06/21 14:38 80 01/06/21 13:15 36.8 85 18 161/73 98 Room Air 01/06/21 12:45 37.0 89 18 148/65 98 Room Air 01/06/21 11:45 36.6 92 18 150/65 (93) 98 Room Air I & O 01/07/21 07:00 Intake Total 1260 ml Balance 1260 ml Capillary Refill : Less Than 3 Seconds General Appearance: No Apparent Distress HEENT: PERRL/EOMI Neck: Full Range of Motion Respiratory: Chest Non Tender Cardiovascular: Regular Rate, Rhythm Gastrointestinal: normal bowel sounds, non tender, soft Extremity: Normal Capillary Refill Neurologic/Psychiatric: Alert, Oriented x3 Skin: Normal Color Lymphatic: No Adenopathy Results Lab Laboratory Tests 01/07/21 05:10: White Blood Count 6.6, Red Blood Count 2.72L, Hemoglobin 8.0#L, Hematocrit 25L, Mean Corpuscular Volume 93, Mean Corpuscular Hemoglobin 29, Mean Corpuscular Hemoglobin Concent 32, Red Cell Distribution Width 17.2H, Platelet Count 202, Mean Platelet Volume 11.2, Immature Granulocyte % (Auto) 1, Neutrophils (%) (Auto) 59, Lymphocytes (%) (Auto) 24, Monocytes (%) (Auto) 11, Eosinophils (%) (Auto) 5, Basophils (%) (Auto) 1, Neutrophils # (Auto) 3.9, Lymphocytes # (Auto) 1.6, Monocytes # (Auto) 0.7, Eosinophils # (Auto) 0.3, Basophils # (Auto) 0.0, Immature Granulocyte # (Auto) 0.1 Assessment/Plan Assessment/Plan Assess & Plan/Chief Complaint recurrent UGIB. tagged RBC scan today. will then cont with medical management, monitor Hb and await clinical cessation of GI bleed(normal stools) then repeat EGD on this admission. MATHIEU LEVY MD Jan 07, 2021 11:42
--- NOTE | 2021-01-07 12:26 | History & Physical-Hospitalist ---
History of Present Illness HPI/Chief Complaint Diana Coleman is an 80-year-old female with past medical history of hypertension, hyperlipidemia, Xutke-Mqjqkckss-Liyjt, who presented with weakness. She discharged from the hospital within the past week after having a GI bleed and anemia requiring transfusion of 3 units PRBC. She underwent an EGD at that time which showed esophagitis, gastritis, and a clotted blood in the stomach. Since discharge, she has not been having any more melena. She has been getting more weak. Her hemoglobin was checked and found to be low and she was sent to the ER. Source: patient Exam Limitations: no limitations Date Seen 01/06/21 Time Seen by a Provider: 15:00 Attending Physician Susana Hart MD PCP Soren Teague MD Referring Physician Date of Admission Jan 06, 2021 at 11:31 Home Medications & Allergies Home Medications Reviewed patient Home Medication Reconciliation performed by pharmacy medication reconciliations press technician and/or nursing. Patients Allergies have been reviewed. Allergies Allergies Coded Allergies Penicillins (Verified Allergy, Unknown, 08/29/17) hydrochlorothiazide (Verified Allergy, Unknown, 08/29/17) Past Jidjhrz-Dpghty-Poikpv Hx Past Med/Social Hx: Reviewed Nursing Past Med/Soc Hx Patient Social History Alcohol Use: Denies Use Recreational Drug Use: No Drug of Choice: DENIES Smoking Status: Never a Smoker Recent Foreign Travel: No Contact w/other who traveled: No Recent Infectious Disease Expo: No Immunizations Up To Date Tetanus Booster (TDap): Unknown Past Medical History Surgeries: Vascular Surgery Cardiac: Coronary Artery Disease, High Cholesterol, Hypertension, Irregular Heartbeat, Peripheral Vascular History of Blood Disorders: No Review of Systems Constitutional: weakness EENTM: no symptoms reported Respiratory: no symptoms reported Cardiovascular: no symptoms reported Gastrointestinal: no symptoms reported Genitourinary: no symptoms reported Musculoskeletal: no symptoms reported Skin: no symptoms reported Psychiatric/Neurological: No Symptoms Reported Physical Exam Physical Exam Vital Signs Vital Signs - First Documented 01/06/21 01/06/21 10:23 11:35 Temp 36.3 Pulse 91 Resp 26 B/P (MAP) 167/61 (96) Pulse Ox 98 O2 Delivery Room Air Capillary Refill : Less Than 3 Seconds Height, Weight, BMI Height: 5'3.00" Weight: 147lbs. oz. 66.675938mh; 22.14 BMI Method:Stated General Appearance: No Apparent Distress, WD/WN HEENT: PERRL/EOMI, Pharynx Normal Neck: Normal Inspection, Supple Respiratory: Lungs Clear, Normal Breath Sounds, No Respiratory Distress Cardiovascular: Regular Rate, Rhythm, No Edema, No Murmur Gastrointestinal: Normal Bowel Sounds, Non Tender, Soft Extremity: Normal Inspection, Non Tender, No Pedal Edema Neurologic/Psychiatric: Alert, Oriented x3, No Motor/Sensory Deficits, Normal Mood/Affect Skin: Normal Color, Warm/Dry Results Results/Procedures Labs Laboratory Tests 01/06/21 10:30 01/07/21 05:10 Patient resulted labs reviewed. Imaging: Reviewed Imaging Report Assessment/Plan Admission Diagnosis Acute blood loss anemia Admission Status: Inpatient Order (span 2 midnights) Reason for Inpatient Admission: GI bleeding requiring endoscopic evaluation Assessment and Plan Acute blood loss anemia Acute upper GI bleeding Esophagitis Gastritis Hgb 5.1 on arrival 2 units PRBC ordered Surgery consulted, appreciate assistance Likely needs another EGD this admission HTN HLD Continue home meds DVT prophylaxis: held due to GI bleeding Diagnosis/Problems Diagnosis/Problems (1) ABLA (acute blood loss anemia) Status: Acute (2) Acute upper GI bleeding Status: Acute (3) Esophagitis Status: Acute (4) Gastritis Status: Acute SUASNA HART MD Jan 07, 2021 12:26
--- NOTE | 2021-01-07 12:39 | Progress Note - Hospitalist ---
Subjective HPI/CC On Admission Date Seen by Provider: Jan 07, 2021 Time Seen by Provider: 10:40 Diana Coleman is an 80-year-old female with past medical history of hypertension, hyperlipidemia, Itnwj-Pmjdhfsbq-Mzhfn, who presented with weakness. She discharged from the hospital within the past week after having a GI bleed and anemia requiring transfusion of 3 units PRBC. She underwent an EGD at that time which showed esophagitis, gastritis, and a clotted blood in the stomach. Since discharge, she has not been having any more melena. She has been getting more weak. Her hemoglobin was checked and found to be low and she was sent to the ER. Subjective/Events-last exam She is feeling better since getting her transfusion. She had an episode of diarrhea with melena this morning. Objective Exam Vital Signs Vital Signs Date Time Temp Pulse Resp B/P (MAP) Pulse Ox O2 Delivery O2 Flow Rate FiO2 01/07/21 08:00 Room Air 01/07/21 08:00 36.4 63 20 179/77 (111) 96 Capillary Refill : Less Than 3 Seconds General Appearance: No Apparent Distress, WD/WN Respiratory: Lungs Clear, Normal Breath Sounds, No Respiratory Distress Cardiovascular: Regular Rate, Rhythm, No Edema, No Murmur Gastrointestinal: Normal Bowel Sounds, Non Tender, Soft Extremity: Normal Inspection, Non Tender, No Pedal Edema Neurologic/Psychiatric: Alert, Oriented x3, No Motor/Sensory Deficits, Normal Mood/Affect Skin: Normal Color, Warm/Dry Results/Procedures Lab Laboratory Tests 01/07/21 05:10 Patient resulted labs reviewed. Imaging: Reviewed Imaging Report Assessment/Plan Assessment and Plan Assess & Plan/Chief Complaint Acute blood loss anemia Acute upper GI bleeding Esophagitis Gastritis Hgb 5.1 on arrival, improved to 8 this morning s/p 2 units PRBC Surgery consulted, appreciate assistance Planning for tagged RBC scan today Likely needs another EGD this admission Continue PPI HTN HLD Continue home meds DVT prophylaxis: held due to GI bleeding Diagnosis/Problems Diagnosis/Problems (1) ABLA (acute blood loss anemia) Status: Acute (2) Acute upper GI bleeding Status: Acute (3) Esophagitis Status: Acute (4) Gastritis Status: Acute SUSANA HART MD Jan 07, 2021 12:38
--- NOTE | 2021-01-07 13:32 | Occ Therapy Progress Note ---
Therapy Progress Note OT attempted evaluation. Pt is currently out of room for a procedure. OT will attempt again later. ALINA CORRALES OT Jan 07, 2021 13:32
--- NOTE | 2021-01-07 13:39 | Diagnostic Imaging Report ---
INDICATION: Severe anemia with dark stools for one and a half weeks. Patient was administered 30.2 mCi technetium 99m pertechnetate labeled to the patient's red blood cells and imaging of the abdomen was performed. There is normal physiologic activity within the liver and spleen as well as the vasculature and bladder. No suspicious uptake is identified to suggest acute GI bleed. IMPRESSION: Negative GI bleeding study. Dictated by: Dictated on workstation # [id number]
--- NOTE | 2021-01-07 15:08 | Occupational Therapy Eval ---
OT Evaluation-General/PLF Medical Diagnosis Admission Date Jan 06, 2021 at 11:31 Medical Diagnosis: symptomic anemia/GI bleed Onset Date: Jan 06, 2021 Therapy Diagnosis Therapy Diagnosis: weakness Height/Weight Height (Feet): 5 Height (Inches): 3.00 Weight (Pounds): 147 Precautions Precautions/Isolations: Standard Precautions Referral Physician: Josemanuel Referral Reason: Evaluation/Treatment Medical History Pertinent Medical History: CAD, HTN, PVD Additional Medical History stent in R leg 2009, irregular heartbeat, Current History EMS from home with c/o low Hgb and weakness. Pt recently discharged from hospital for GI bleed Social History Home: Single Level Current Living Status: Alone ADL-Prior Level of Function SCALE: Activities may be completed with or without assistive devices. 6-Gttrusqzrn-fvkkvfl completes the activity by him/herself with no assistance from a helper. 5-Set-up or Clean-up Assistance-helper sets up or cleans up; patient completes activity. [place] assists only prior to or following the activity. 4-Supervision or Touching Assistance-helper provides verbal cues and/or touching/steadying and/or contact guard assistance as patient completes activity. Assistance may be provided throughout the activity or intermittently. 3-Partial/Moderate Assistance-helper does LESS THAN HALF the effort. [place] lifts, holds or supports trunk or limbs, but provides less than half the effort. 2-Substantial/Maximal Assistance-helper does MORE THAN HALF the effort. [place] lifts or holds trunk or limbs and provides more than half the effort. 6-Miiqzljpx-oefwyo does ALL the effort. Patient does none of the effort to complete the activity. Or, the assistance of 2 or more helpers is required for the patient to complete the activity. If activity was not attempted, code reason: 7-Patient Refused. 9-Not Applicable-not attempted and the patient did not perform the activity before the current illness, exacerbation or injury. 10-Not Attempted due to Environmental Limitations-(lack of equipment, weather restraints, etc.). 88-Not Attempted due to Medical Conditions or Safety Concerns. ADL PLOF Comments Pt reports independent with ADLs at PLOF, using walker for functional mobility. Self Care: Independent Functional Cognition: Independent DME/Equipment Comments walker OT Current Status Subjective Pt laying in bed, agreeable to OT Tx. Pt does not verbalize any pain at this time. Current Hand Dominance: Right Upper Extremity ROM WFL, BUE shoulder flexion to approx 110 degrees, pt able to touch back of head with hands Upper Extremity Coordination WFL Upper Extremity Sensation WFL Upper Extremity Strength WFL, grossly 4/5 BUEs ADL-Treatment Eating (QC): 6 (Pt reports no difficulty using utensils and opening containers) Upper Body Dressing (QC): 6 (Based on clincial judgement and pt report.) Lower Body Dressing (QC): 6 (based on clincial [employer] and pt report.) On/Off Footwear (QC): 6 Toileting Hygiene (QC): 6 (Pt reports she has been taking self to bathroom, able to manage clothing and hygiene) Other Treatments Pt laying in bed, agreeable to OT evaluation and tx. OT educated pt on purpose and benefit of OT, she verbalized understanding. Pt provides information about PLOF and home set up, and participates in UE screen. Pt states plans to have friend stay with her upon discharge. Pt transferred supine to sit EOB independently. Pt able to doff/don bilateral gripper socks, and states ability to feed and toilet self independently. Pt has no concerns with her ability to complete ADLS, and states she is at her PLOF. Pt transferred supine independently. Post tx, pt laying in bed, call light in reach and all needs met. Education OT Patient Education: Correct positioning, Exercise program, Progress toward Goal/Update tx plan, Purpose of tx/functional activities, Rehab process Teaching Recipient: Patient Teaching Methods: Discussion Response to Teaching: Verbalize Understanding OT Videotape Operator Goals Ch[facility] Goals 1=Demonstrate adherence to instructed precautions during ADL tasks. 2=Patient will verbalize/demonstrate understanding of assistive devices/modifications for ADL. 3=Patient will improve strength/tolerance for activity to enable patient to perform ADL's. OT Education/Plan Problem List/Assessment Assessment: No Skilled OT Needs ID'd No skilled OT services indicated at this time, as pt is at her PLOF and independent with all ADLs. Pt has no concerns with completing ADLS. Discharge Recommendations Plan/Recommendations: Discharge/Goals Met Treatment Plan/Plan of Care Treatment,Training & Education: Yes Patient would benefit from OT for education, treatment and training to promote independence in ADL's, mobility, safety and/or upper extremity function for ADL's. Plan of Care: ADL Retraining Treatment Duration: Jan 07, 2021 Frequency: 1 time per week (eval only) Rehab Potential: Fair Time/GCodes Start Time: 14:12 Stop Time: 14:27 Total Time Billed (hr/min): 15 Billed Treatment Time 1, ALINA MOSQUEDA OT Jan 07, 2021 15:08
[2021-01-07 15:31] VITALS: BP 179/78
[2021-01-07] MEDS ORDERED: hydrALAZINE (APRESOLINE) 25 MG TAB PO NR (17:00)
[2021-01-07 18:43] VITALS: BP 164/74
[2021-01-07 19:57] VITALS: BP 178/86
[2021-01-07] MEDS: meTOproloL SUCCINATE 50 MG (TOPROL XL) TAB PO SCH (21:09)
[2021-01-08] VITALS: BP 129/62
[2021-01-08 03:33] VITALS: BP_SYST 116; BP_SYST 152; BP_DIAS 61; BP_DIAS 69
[2021-01-08] MEDS: CATHETER FLUSH 10 ML SYR IV SCH ×3 (05:27→20:01)
[2021-01-08] MEDS: PANTOPRAZOLE 40 MG (PROTONIX) VIAL IV SCH (08:00)
[2021-01-08] MEDS: LOSARTAN 100 MG (COZAAR) TABLET PO SCH (08:00)
[2021-01-08] MEDS: hydrALAZINE (APRESOLINE) 25 MG TAB PO SCH ×2 (08:00→20:00)
[2021-01-08 08:01] VITALS: BP 197/77
[2021-01-08 08:50] LABS: HEMOGLOBIN 7.8 g/dL (11.5-16.0)
[2021-01-08 09:08] LABS: BUN/CREATININE RATIO 18; CARBON DIOXIDE 23 MMOL/L (21-32); CHLORIDE 112 MMOL/L (98-107); CREATININE SERUM 0.67 MG/DL (0.60-1.30); GFR ESTIMATED > 60; GLUCOSE 109 MG/DL (70-105); POTASSIUM 3.3 MMOL/L (3.6-5.0); SODIUM 145 MMOL/L (135-145)
--- NOTE | 2021-01-08 10:13 | Physical Therapy Daily Note ---
PT Daily Note-Current Subjective Pt seated in chair pre tx. Pt reports no pain. Pt agreed to participate in PT. Appearance Pt lefts seated upright in chair post tx, [facility] Mental Status Patient Orientation: Person, Place, Time, Normal For Age Transfers SCALE: Activities may be completed with or without assistive devices. 9-Jeexmfzkgt-ubqmvkn completes the activity by him/herself with no assistance from a helper. 5-Set-up or Clean-up Assistance-helper sets up or cleans up; patient completes activity. [place] assists only prior to or following the activity. 4-Supervision or Touching Assistance-helper provides verbal cues and/or touching/steadying and/or contact guard assistance as patient completes activity. Assistance may be provided throughout the activity or intermittently. 3-Partial/Moderate Assistance-helper does LESS THAN HALF the effort. [place] lifts, holds or supports trunk or limbs, but provides less than half the effort. 2-Substantial/Maximal Assistance-helper does MORE THAN HALF the effort. [place] lifts or holds trunk or limbs and provides more than half the effort. 5-Nzsultuwp-oydjyr does ALL the effort. Patient does none of the effort to complete the activity. Or, the assistance of 2 or more helpers is required for the patient to complete the activity. If activity was not attempted, code reason: 7-Patient Refused. 9-Not Applicable-not attempted and the patient did not perform the activity before the current illness, exacerbation or injury. 10-Not Attempted due to Environmental Limitations-(lack of equipment, weather restraints, etc.). 88-Not Attempted due to Medical Conditions or Safety Concerns. Sit to Stand (QC): 6 Pt denied dizziness/lightheadedness before and after sit <> stand transfer. Gait Training Does the Patient Walk?: Yes Distance: 60' Walk 10 feet (QC): 6 Walk 50 ft with 2 Turns(QC): 6 Gait Assistive Device: None Patient ambulates at a brisk pace with steady gait. Treatments GT, balance, and endurance Assessment Current Status: Excellent Progress Patient slightly fatigued in the last 10' of ambulation, but remained steady throughout gait pattern. PT Short Term Goals Short Term Goals Time Frame: Jan 10, 2021 Roll Left & Right: 6 Sit to lyin Lying to sitting on side of be: 6 Sit to stand: 6 Chair/ydw-qj-mdkpz transfer: 6 Toilet transfer: 6 Walk 10 feet: 6 Walk 50 feet with two turns: 6 Walk 150 feet: 6 PT Plan Problem List Problem List: Activity Tolerance, Functional Strength, Safety, Balance, Gait, ROM Treatment/Plan Treatment Plan: Continue Plan of Care Treatment Plan: Education, Functional Activity Iftikhar, Gait, Safety, Therapeutic Exercise, Transfers Treatment Duration: Jan 10, 2021 Frequency: 4 times per week Estimated Hrs Per Day: .25 hour per day Patient and/or Family Agrees t: Yes Safety Risks/Education Patient Education: Gait Training, Correct Positioning, Safety Issues Teaching Recipient: Patient Teaching Methods: Demonstration, Discussion Response to Teaching: Verbalize Understanding, Return Demonstration Time/GCodes Time In: 45 Time Out: 09 Total Billed Treatment Time: 8 Total Billed Treatment 1 visit: GT: Melissa' BERNARDINO DIAZ PT Jan 08, 2021 10:13
[2021-01-08 12:00] VITALS: BP 126/58
--- NOTE | 2021-01-08 12:56 | Progress Note - Hospitalist ---
Subjective HPI/CC On Admission Date Seen by Provider: Jan 08, 2021 Time Seen by Provider: 11:45 Diana Coleman is an 80-year-old female with past medical history of hypertension, hyperlipidemia, [id number]-Qcxgg, who presented with weakness. She discharged from the hospital within the past week after having a GI bleed and anemia requiring transfusion of 3 units PRBC. She underwent an EGD at that time which showed esophagitis, gastritis, and a clotted blood in the stomach. Since discharge, she has not been having any more melena. She has been getting more weak. Her hemoglobin was checked and found to be low and she was sent to the ER. Subjective/Events-last exam She has not had any bloody stools. She denies lightheadedness and dizziness. She denies chest pain and shortness of breath. She has been eating and drinking without issue. She has been up and moving around. Objective Exam Vital Signs Vital Signs Date Time Temp Pulse Resp B/P (MAP) Pulse Ox O2 Delivery O2 Flow Rate FiO2 01/08/21 12:39 68 01/08/21 12:00 36.6 18 126/58 (80) 97 Room Air Capillary Refill : Less Than 3 Seconds General Appearance: No Apparent Distress, WD/WN Neck: Normal Inspection, Supple Respiratory: Lungs Clear, Normal Breath Sounds, No Respiratory Distress Cardiovascular: Regular Rate, Rhythm, No Edema, No Murmur Gastrointestinal: Normal Bowel Sounds, Non Tender, Soft Extremity: Normal Inspection, Non Tender, No Pedal Edema Neurologic/Psychiatric: Alert, Oriented x3, No Motor/Sensory Deficits, Normal Mood/Affect Skin: Normal Color, Warm/Dry Results/Procedures Lab Laboratory Tests 01/08/21 08:10 Patient resulted labs reviewed. Imaging: Reviewed Imaging Report Assessment/Plan Assessment and Plan Assess & Plan/Chief Complaint Acute blood loss anemia Acute upper GI bleeding Esophagitis Gastritis Hgb 5.1 on arrival, improved, stable s/p 2 units PRBC Surgery consulted, appreciate assistance Tagged RBC scan negative Possibly needs repeart EGD this admission Continue PPI HTN HLD Continue home meds DVT prophylaxis: held due to GI bleeding Diagnosis/Problems Diagnosis/Problems (1) ABLA (acute blood loss anemia) Status: Acute (2) Acute upper GI bleeding Status: Acute (3) Esophagitis Status: Acute (4) Gastritis Status: Acute SUSANA HART MD Jan 08, 2021 12:56
[2021-01-08] MEDS ORDERED: KCL 20 MEQ TAB (K-DUR) PO ONE (13:00)
--- NOTE | 2021-01-08 14:46 | Progress Note ---
Subjective Date Seen by a Provider: Jan 08, 2021 Time Seen by a Provider: 14:00 Subjective/Events-last exam doing ok. hb stable. no BM today. RBC scan negative. Objective Exam Vital Signs Date Time Temp Pulse Resp B/P (MAP) Pulse Ox O2 Delivery O2 Flow Rate FiO2 01/08/21 12:39 68 01/08/21 12:00 36.6 62 18 126/58 (80) 97 Room Air 01/08/21 08:01 36.9 68 20 197/77 (117) 95 Room Air 01/08/21 08:00 Room Air 01/08/21 07:06 66 01/08/21 03:33 36.1 60 18 152/69 (96) 98 Room Air 01/08/21 01:00 60 01/08/21 00:00 36.2 66 18 129/62 (84) 97 Room Air 01/07/21 20:45 Room Air 01/07/21 19:57 37.1 82 18 178/86 (116) 98 Room Air 01/07/21 19:00 77 01/07/21 18:43 164/74 (104) 01/07/21 15:31 36.4 65 18 179/78 (111) 96 Room Air I & O 01/08/21 07:00 Intake Total 750 ml Balance 750 ml Capillary Refill : Less Than 3 Seconds General Appearance: No Apparent Distress HEENT: PERRL/EOMI Neck: Full Range of Motion Respiratory: Chest Non Tender, Lungs Clear, Normal Breath Sounds Cardiovascular: Regular Rate, Rhythm Gastrointestinal: normal bowel sounds, non tender, soft Extremity: Normal Capillary Refill Neurologic/Psychiatric: Alert, Oriented x3 Skin: Normal Color Lymphatic: No Adenopathy Results Lab Laboratory Tests 01/08/21 08:10: Hemoglobin 7.8L, Hematocrit 25L, Sodium Level 145, Potassium Level 3.3L, Chloride Level 112H, Carbon Dioxide Level 23, Anion Gap 10, Blood Urea Nitrogen 12, Creatinine 0.67, Estimat Glomerular Filtration Rate > 60, BUN/Creatinine Ratio 18, Glucose Level 109H, Calcium Level 8.0L Assessment/Plan Assessment/Plan Assess & Plan/Chief Complaint recurrent UGIB. tagged RBC negative. will then cont with medical management, monitor Hb and await clinical cessation of GI bleed(normal stools) then repeat EGD on this admission. MATHIEU LEVY MD Jan 08, 2021 14:46
[2021-01-08 16:00] VITALS: BP 165/73
[2021-01-08 19:58] VITALS: BP 193/77
[2021-01-08] MEDS: PANTOPRAZOLE 40 MG (PROTONIX) TAB PO SCH (20:00)
[2021-01-08] MEDS: meTOproloL SUCCINATE 50 MG (TOPROL XL) TAB PO SCH (20:00)
[2021-01-09] VITALS (11 sets, daily range): BP systolic 135–188; BP diastolic 54–78
[2021-01-09] MEDS: hydrALAZINE (APRESOLINE) 25 MG TAB PO SCH ×3 (03:55→20:14)
[2021-01-09] MEDS: LOSARTAN 100 MG (COZAAR) TABLET PO SCH (03:55)
[2021-01-09] MEDS: CATHETER FLUSH 10 ML SYR IV SCH ×3 (05:35→20:12)
[2021-01-09 06:21] LABS: HEMOGLOBIN 6.8 g/dL (11.5-16.0)
[2021-01-09 06:31] LABS: BUN/CREATININE RATIO 28; CALCIUM 7.8 MG/DL (8.5-10.1); CARBON DIOXIDE 22 MMOL/L (21-32); CHLORIDE 112 MMOL/L (98-107); CREATININE SERUM 0.68 MG/DL (0.60-1.30); GFR ESTIMATED > 60; GLUCOSE 102 MG/DL (70-105); MAGNESIUM 1.9 MG/DL (1.6-2.4); POTASSIUM 3.8 MMOL/L (3.6-5.0); SODIUM 141 MMOL/L (135-145)
[2021-01-09] MEDS ORDERED: NS IV 500 ML 500 ML IV SCH (08:00)
[2021-01-09] MEDS ORDERED: hydrALAZINE (APESOLINE) 20 MG/ML VIAL IV PRN (08:00)
[2021-01-09] MEDS: PANTOPRAZOLE 40 MG (PROTONIX) TAB PO SCH ×2 (08:07→20:12)
--- NOTE | 2021-01-09 09:56 | Progress Note - Hospitalist ---
Subjective HPI/CC On Admission Date Seen by Provider: Jan 09, 2021 Time Seen by Provider: 08:50 Diana Coleman is an 80-year-old female with past medical history of hypertension, hyperlipidemia, Lsdnq-Iennegnam-Ricty, who presented with weakness. She discharged from the hospital within the past week after having a GI bleed and anemia requiring transfusion of 3 units PRBC. She underwent an EGD at that time which showed esophagitis, gastritis, and a clotted blood in the stomach. Since discharge, she has not been having any more melena. She has been getting more weak. Her hemoglobin was checked and found to be low and she was sent to the ER. Subjective/Events-last exam She is feeling weak today. She had a small episode of melena. She denies lightheadedness and dizziness. She denies chest pain and shortness of breath. Objective Exam Vital Signs Vital Signs Date Time Temp Pulse Resp B/P (MAP) Pulse Ox O2 Delivery O2 Flow Rate FiO2 01/09/21 09:21 37.0 68 20 173/76 98 Room Air Capillary Refill : Less Than 3 Seconds General Appearance: No Apparent Distress, WD/WN Respiratory: Lungs Clear, Normal Breath Sounds, No Respiratory Distress Cardiovascular: Regular Rate, Rhythm, No Edema, No Murmur Gastrointestinal: Normal Bowel Sounds, Non Tender, Soft Extremity: Normal Inspection, Non Tender, No Pedal Edema Neurologic/Psychiatric: Alert, Oriented x3, No Motor/Sensory Deficits, Normal Mood/Affect Skin: Warm/Dry, Pallor Results/Procedures Lab Laboratory Tests 01/09/21 05:37 Patient resulted labs reviewed. Imaging: Reviewed Imaging Report Assessment/Plan Assessment and Plan Assess & Plan/Chief Complaint Acute blood loss anemia Acute upper GI bleeding Esophagitis Gastritis Hgb 6.8 this morning, transfusing 1 unit PRBC s/p 2 units PRBC Surgery consulted, appreciate assistance Tagged RBC scan negative Continue PPI Add Carafate Planning for EGD tomorrow HTN HLD Continue home meds Increase Hydralazine DVT prophylaxis: held due to GI bleeding Diagnosis/Problems Diagnosis/Problems (1) ABLA (acute blood loss anemia) Status: Acute (2) Acute upper GI bleeding Status: Acute (3) Esophagitis Status: Acute (4) Gastritis Status: Acute (5) HTN (hypertension) Status: Acute Qualifiers: Hypertension type: essential hypertension Qualified Codes: I10 - Essential (primary) hypertension SUSANA AHRT MD Jan 09, 2021 09:56
[2021-01-09] MEDS: SUCRALFATE 1 GM (CARAFATE) TAB PO SCH ×3 (10:34→20:12)
--- NOTE | 2021-01-09 13:47 | Physical Therapy Progress Note ---
Therapy Progress Note Patient is up independently in room without FWW without difficulty. Patient declined PT at this time. PT will reassess in a.m. on POC. 1 ref ([id number]) VIDAL ROD PT Jan 09, 2021 13:47
--- NOTE | 2021-01-09 14:39 | Progress Note ---
Subjective Date Seen by a Provider: Jan 09, 2021 Time Seen by a Provider: 14:30 Subjective/Events-last exam doing ok. having some darker stools. no abd pain. Objective Exam Vital Signs Date Time Temp Pulse Resp B/P (MAP) Pulse Ox O2 Delivery O2 Flow Rate FiO2 01/09/21 12:10 63 01/09/21 11:19 37.0 71 18 172/54 99 Room Air 01/09/21 09:21 37.0 68 20 173/76 98 Room Air 01/09/21 08:53 36.8 65 20 162/72 98 Room Air 01/09/21 08:00 Room Air 01/09/21 07:59 36.9 63 20 186/78 (114) 98 Room Air 01/09/21 06:36 58 01/09/21 05:30 68 141/68 (92) 01/09/21 03:47 36.1 59 18 188/69 (108) 97 Room Air 01/09/21 01:00 60 01/09/21 00:00 36.2 62 18 177/73 (107) 98 Room Air 01/08/21 19:58 36.0 73 18 193/77 (115) 97 Room Air 01/08/21 19:55 Room Air 01/08/21 19:00 62 01/08/21 16:00 37.0 71 20 165/73 (103) 98 Room Air I & O 01/09/21 07:00 Intake Total 1773 ml Balance 1773 ml Capillary Refill : Less Than 3 Seconds General Appearance: No Apparent Distress HEENT: PERRL/EOMI Neck: Full Range of Motion Respiratory: Chest Non Tender, Lungs Clear, Normal Breath Sounds Cardiovascular: Regular Rate, Rhythm Gastrointestinal: normal bowel sounds, non tender, soft Extremity: Normal Capillary Refill Neurologic/Psychiatric: Alert, Oriented x3 Skin: Normal Color Lymphatic: No Adenopathy Results Lab Laboratory Tests 01/09/21 05:37: Hemoglobin 6.8*L, Hematocrit 22L, Sodium Level 141, Potassium Level 3.8, Chloride Level 112H, Carbon Dioxide Level 22, Anion Gap 7, Blood Urea Nitrogen 19H, Creatinine 0.68, Estimat Glomerular Filtration Rate > 60, BUN/Creatinine Ratio 28, Glucose Level 102, Calcium Level 7.8L, Magnesium Level 1.9 01/09/21 13:13: Lab Scanned Report Transfusion Reaction Form 01/09/21 13:13: Lab Scanned Report Transfusion Reaction Form Assessment/Plan Assessment/Plan Assess & Plan/Chief Complaint recurrent UGIB. tagged RBC negative. will then cont with medical management, monitor Hb and await clinical cessation of GI bleed(normal stools) then repeat EGD on this admission. MATHIEU LEVY MD Jan 09, 2021 14:39
--- NOTE | 2021-01-09 14:40 | Progress Note-Pre Operative ---
Pre-Operative Progress Note H&P Reviewed The H&P was reviewed, patient examined and no changes noted. Date Seen by Provider: Jan 09, 2021 Time Seen by Provider: 14:30 Date H&P Reviewed: Jan 09, 2021 Time H&P Reviewed: 14:30 Pre-Operative Diagnosis: upper GI bleed MATHIEU LEVY MD Jan 09, 2021 14:40
--- NOTE | 2021-01-09 14:40 | Conscious Sedation/ASA ---
Conscious Sedation Pre-Proced Time 14:30 ASA Score 2 For ASA 3 and 4: Consider anesthesia and medical clearance. Also, for patients with a history of failed moderate sedation consider anesthesia. Airway Lungs Heart ASA score ASA 1: a normal healthy patient ASA 2: a patient with a mild systemic disease (mid diabetes, controlled hypertension, obesity ASA 3: a patient with a severe systemic disease that limits activity (angina, COPD, prior Myocardial infarction) ASA 4: a patient with an incapacitating disease that is a constant threat to life (CHF, renal failure) ASA 5: a moribund patient not expected to survive 24 hrs. (ruptured aneurysm) ASA 6: a declared brain- patient whose organs are being harvested. For emergent operations, add the letter E after the classification Mallampati Classification Grade 2 Sedation Plan Analgesia, Amnesia, Plan communicated to team members, Discussed options with patient/fam, Discussed risks with patient/fam The patient is an appropriate candidate to undergo the planned procedure, sedation, and anesthesia. The patient immediately re-assessed prior to indication. MATHIEU LEVY MD Jan 09, 2021 14:40
[2021-01-09] MEDS: meTOproloL SUCCINATE 50 MG (TOPROL XL) TAB PO SCH (20:12)
[2021-01-10] VITALS (10 sets, daily range): BP systolic 96–178; BP diastolic 51–78
[2021-01-10] MEDS: SUCRALFATE 1 GM (CARAFATE) TAB PO SCH ×5 (06:31→20:57)
[2021-01-10] MEDS: CATHETER FLUSH 10 ML SYR IV SCH ×3 (06:31→21:01)
[2021-01-10 06:32] LABS: HEMOGLOBIN 9.1 g/dL (11.5-16.0)
[2021-01-10] MEDS: LOSARTAN 100 MG (COZAAR) TABLET PO SCH (09:04)
[2021-01-10] MEDS: hydrALAZINE (APRESOLINE) 25 MG TAB PO SCH ×2 (09:04→20:57)
[2021-01-10] MEDS: PANTOPRAZOLE 40 MG (PROTONIX) TAB PO SCH ×2 (09:04→20:57)
--- NOTE | 2021-01-10 09:48 | Physical Therapy Progress Note ---
Therapy Progress Note Patient is up independently in room and continues to declined to ambulate in hallway. Patient is currently at independent PLOF and does not require continued skilled therapy. PT to dismiss patient from services at this time. Patient agrees and voices no concern. VIDAL ROD PT Jan 10, 2021 09:48
--- NOTE | 2021-01-10 10:12 | Progress Note - Hospitalist ---
Subjective HPI/CC On Admission Date Seen by Provider: Jan 10, 2021 Time Seen by Provider: 08:45 Diana Coleman is an 80-year-old female with past medical history of hypertension, hyperlipidemia, Hchow-Nnowvtcqi-Kicaf, who presented with weakness. She discharged from the hospital within the past week after having a GI bleed and anemia requiring transfusion of 3 units PRBC. She underwent an EGD at that time which showed esophagitis, gastritis, and a clotted blood in the stomach. Since discharge, she has not been having any more melena. She has been getting more weak. Her hemoglobin was checked and found to be low and she was sent to the ER. Subjective/Events-last exam She had another black stool. She denies lightheadedness and dizziness. She felt better after receiving her transfusion yesterday. Objective Exam Vital Signs Vital Signs Date Time Temp Pulse Resp B/P (MAP) Pulse Ox O2 Delivery O2 Flow Rate FiO2 01/10/21 07:52 37.0 62 20 178/78 (111) 98 Room Air Capillary Refill : Less Than 3 Seconds General Appearance: No Apparent Distress, WD/WN Respiratory: Lungs Clear, Normal Breath Sounds, No Respiratory Distress Cardiovascular: Regular Rate, Rhythm, No Edema, No Murmur Gastrointestinal: Normal Bowel Sounds, Non Tender, Soft Extremity: Normal Inspection, Non Tender, No Pedal Edema Neurologic/Psychiatric: Alert, Oriented x3, No Motor/Sensory Deficits, Normal Mood/Affect Skin: Normal Color, Warm/Dry Results/Procedures Lab Laboratory Tests 01/10/21 06:24 Patient resulted labs reviewed. Imaging: Reviewed Imaging Report Assessment/Plan Assessment and Plan Assess & Plan/Chief Complaint Acute blood loss anemia Acute upper GI bleeding Esophagitis Gastritis Hgb 9.1 this morning s/p 3 units PRBC Surgery consulted, appreciate assistance Continue PPI and Carafate Planning for EGD today HTN HLD Continue current meds Hydralazine as needed DVT prophylaxis: held due to GI bleeding Diagnosis/Problems Diagnosis/Problems (1) ABLA (acute blood loss anemia) Status: Acute (2) Acute upper GI bleeding Status: Acute (3) Esophagitis Status: Acute (4) Gastritis Status: Acute (5) HTN (hypertension) Status: Acute Qualifiers: Hypertension type: essential hypertension Qualified Codes: I10 - Essential (primary) hypertension SUSANA HART MD Jan 10, 2021 10:12
[2021-01-10] MEDS ORDERED: LACTATED RINGERS 1,000 ML IV ONE (12:53)
[2021-01-10] MEDS ORDERED: proPOfol 200 MG/20 ML (DIPRIVAN) VIAL IV ONE (13:13)
[2021-01-10] MEDS ORDERED: HURRICAINE EXT TUBE (BENZOCAINE) ONE (13:20)
[2021-01-10] MEDS ORDERED: LIDOCAINE JELLY 2% 6 ML SYRINGE ONE (13:24)
[2021-01-10] MEDS ORDERED: LACTATED RINGERS 1,000 ML IV STA (13:55)
--- NOTE | 2021-01-10 13:57 | Progress Note-Post Operative ---
Post-Operative Progess Note Surgeon (s)/Weed Burner (s) Surgeon MATHIEU LEVY MD Weed Burner: none Pre-Operative Diagnosis upper GI bleed Post-Operative Diagnosis reflux esophagitis(stage 2), small HH(1.5cm), gastric ulcer at fundus with no active bleed. no old blood within stomach. Procedure & Operative Findings Date of Procedure 01/10/21 Procedure Performed/Findings EGD with bx. Anesthesia Type mac Estimated Blood Loss Estimated blood loss (mL): minimal Specimens/Packing Specimens Removed fundic ulcer. MATHIEU LEVY MD Jan 10, 2021 13:57
[2021-01-10] MEDS ORDERED: OMEP40CA27 PO (13:59)
--- NOTE | 2021-01-10 13:59 | Discharge Inst-Surgical ---
D/C Lap Instructions-KIDO New, Converted, or Re-Newed RX: RX on Chart Follow Up Appt in 8 weeks Activity as tolerated Avoid Alcohol, Caffeine, Spicy Micro and Acid foods. Drink 64 fluid oz or more of fluids per day. Symptoms to Report: Fever over 101 degree F, Nausea/Vomiting If any problems/questions: Contact your physician or go to Emergency Room MATHIEU LEVY MD Jan 10, 2021 13:59
[2021-01-10] MEDS ORDERED: LIDOCAINE JELLY 2% 6 ML SYRINGE MM PRN (14:00)
[2021-01-10] MEDS ORDERED: HURRICAINE EXT TUBE (BENZOCAINE) XX PRN (14:00)
--- NOTE | 2021-01-10 14:09 | Anesthesia-General Post-Op ---
MAC Patient Condition Mental Status/LOC: Same as Preop Cardiovascular: Satisfactory Nausea/Vomiting: Absent Respiratory: Satisfactory Pain: Controlled Complications: Absent Post Op Complications Complications None Follow Up Care/Instructions Patient Instructions None needed. Anesthesiology Discharge Order Discharge Order Patient is doing well, no complaints, stable vital signs, no apparent adverse anesthesia problems. No complications reported per nursing. JOEL MASSEY CRNA Jan 10, 2021 14:09
--- NOTE | 2021-01-10 20:15 | OPERATIVE REPORT ---
DATE OF SERVICE: 01/10/2021 ATTENDING PRIMARY CARE PHYSICIAN: Soren Teague MD ADMITTING PHYSICIAN: Dr. Abernathy. PREOPERATIVE DIAGNOSIS: Recurrent upper gastrointestinal bleeding. POSTOPERATIVE DIAGNOSES: Reflux esophagitis stage II, small hiatal hernia 1.5 cm in size, ulcer at the cardia portion of the stomach consistent with a type 1 gastric ulcer, no active bleed. Mild to moderate gastritis. PROCEDURE: EGD with biopsy. ANESTHESIA: Monitored anesthesia care. ESTIMATED BLOOD LOSS: Minimal. FINDINGS: Same as postoperative diagnoses. DISPOSITION: The patient tolerated the procedure well. INDICATIONS: The patient is an 80-year-old female, who was admitted for diarrhea and dark tarry stools approximately 2 weeks ago and did not require any blood transfusion. She underwent an EGD and was found to have clotted blood within the stomach; however, no active bleeding sources identified. She was treated with Protonix and Carafate and her hemoglobin remained stable and she was discharged home. She then presented to the Emergency Department with weakness and fatigue and was found to be severely anemic with a hemoglobin of 5.1. Since admission, she has had several episodes of solid dark tarry stools. She has received a total of 3 units of packed red blood cells and her hemoglobin has gone up appropriately. DESCRIPTION OF PROCEDURE: The patient was brought to the endoscopy suite, laid in the left lateral decubitus position with head slightly elevated. After adequate IV pain and sedative medications and monitored anesthesia care, the mouthpiece was applied. The endoscope was placed in the mouth, visualizing the pharynx and hypopharyngeal region. Vocal cords, epiglottis and vallecula identified and appeared to be normal. The endoscope was then gently intubated into the esophageal opening and esophagus insufflated. The endoscope was then advanced to the first, second and third portion of esophagus at the level of the GE junction, reflux esophagitis stage II identified. There was a mild distal esophageal stricture. However, she does not appear to be symptomatic. The endoscope was then advanced in the stomach and endoscope retroflexed, visualizing a small hiatal hernia approximately 1.5 cm in size. There was no blood within the stomach. Upon further inspection, there appeared to be a healing ulcer at the cardia of the stomach consistent with a type 1 gastric ulcer. There was no active bleeding. A biopsy was taken of the edge of the ulcer with forceps with visualization of good hemostasis. There was a mild to moderate gastritis, and the pylorus and duodenum appeared normal. The endoscope was then slowly withdrawn while taking a second look and suctioning of residual air with no additional findings. The patient tolerated the procedure well. We will continue to monitor her hemoglobin and start a diet on her. She is currently on Protonix. However, due to the finding of the ulcer and the severe anemia and recurrent bleeding, we will also add a second PPI acid bay stocker and we will have her continue with Carafate for another 2 weeks on a q.i.d. basis. Job ID: [id number] DocumentID: [id number] Dictated Date: 01/10/2021 13:53:31 Matchbook Assembler Date: 01/10/2021 20:15:29 Dictated By: MATHIEU LEVY MD
[2021-01-10] MEDS: meTOproloL SUCCINATE 50 MG (TOPROL XL) TAB PO SCH (20:57)
[2021-01-11 04:00] VITALS: BP 162/76
[2021-01-11] MEDS: CATHETER FLUSH 10 ML SYR IV SCH (06:23)
[2021-01-11] MEDS: SUCRALFATE 1 GM (CARAFATE) TAB PO SCH (06:23)
[2021-01-11 07:22] LABS: HEMOGLOBIN 8.9 g/dL (11.5-16.0)
[2021-01-11 08:00] VITALS: BP 193/81
[2021-01-11] MEDS ORDERED: PANT40TA52 PO (08:12)
[2021-01-11] MEDS: PANTOPRAZOLE 40 MG (PROTONIX) TAB PO SCH (08:16)
[2021-01-11] MEDS: LOSARTAN 100 MG (COZAAR) TABLET PO SCH (08:16)
[2021-01-11] MEDS: hydrALAZINE (APRESOLINE) 25 MG TAB PO SCH (08:16)
--- NOTE | 2021-01-11 10:44 | Progress Note ---
Subjective Date Seen by a Provider: Jan 11, 2021 Time Seen by a Provider: 10:00 Subjective/Events-last exam Patient seen with Dr. Cunningham. Patient reports doing well this morning. Tolerating diet and ambulating. Denies any N/V, abdominal pain, Reflux, SOB. Reports normal colored BM this morning. Objective Exam Vital Signs Date Time Temp Pulse Resp B/P (MAP) Pulse Ox O2 Delivery O2 Flow Rate FiO2 01/11/21 08:00 36.3 64 16 193/81 (118) 96 Room Air 01/11/21 08:00 Room Air 01/11/21 07:00 62 01/11/21 04:00 36.7 67 18 162/76 (104) 97 Room Air 01/11/21 00:22 68 01/10/21 23:45 36.8 73 18 156/69 (98) 95 Room Air 01/10/21 19:53 Room Air 01/10/21 19:53 37.2 76 20 160/71 (100) 97 Room Air 01/10/21 19:00 78 01/10/21 15:00 36.6 60 16 156/70 (98) 94 Nasal Cannula 01/10/21 14:20 36.8 62 18 152/69 (96) 94 Room Air 01/10/21 14:00 60 16 98 Room Air 01/10/21 13:55 60 16 100 OxyMask 10 01/10/21 13:50 59 16 100 OxyMask 10 01/10/21 12:48 58 01/10/21 12:00 36.9 62 18 176/77 (110) 99 Room Air I & O 01/11/21 07:00 Intake Total 1440 ml Balance 1440 ml Capillary Refill : Less Than 3 Seconds General Appearance: No Apparent Distress, WD/WN Neck: Full Range of Motion, Normal Inspection Respiratory: No Accessory Muscle Use, No Respiratory Distress Cardiovascular: Regular Rate, Rhythm, No Edema Gastrointestinal: normal bowel sounds, non tender, soft Extremity: Normal Inspection, Normal Range of Motion Neurologic/Psychiatric: Alert, Oriented x3 Skin: Normal Color, Warm/Dry Results Lab Laboratory Tests 01/11/21 07:15: Hemoglobin 8.9L, Hematocrit 28L Assessment/Plan Assessment/Plan Assess & Plan/Chief Complaint An 80 year old female with recurrent UGIB. tagged RBC negative. EGD showed fundic ulcer with no active bleed Hgb stable at 8.9 this morning. Continue with PPIs and carafate Continue PUD diet OK to DC home CARLYN WASHINGTON APRN Jan 11, 2021 10:44
--- NOTE | 2021-01-11 12:48 | Discharge Summary ---
Discharge Summary Hospital Course Problems/Dx: (1) Acute ulcer of gastric fundus Status: Acute (2) Acute upper GI bleeding Status: Acute (3) ABLA (acute blood loss anemia) Status: Acute (4) Esophagitis Status: Acute (5) Gastritis Status: Acute (6) HTN (hypertension) Status: Acute Qualifiers: Qualified Codes: I10 - Essential (primary) hypertension Hospital Course Date of Admission: Jan 06, 2021 at 11:31 Admission Diagnosis: Acute blood loss anemia due to upper GI bleeding Family Physician/Provider: Ben Ramos MD Date of Discharge: 01/11/21 Discharge Diagnosis: Acute blood loss anemia due to upper GI bleeding from fundal gastric ulcer Hospital Course: Diana Coleman is an 80-year-old female who presented with melena and was admitted with acute blood loss anemia due to upper GI bleeding. She had a recent hospitalization for a similar presentation. An EGD performed on that hospital stay revealed esophagitis and gastritis. This hospital stay, she was initially treated conservatively with blood transfusions and IV PPI. She continued to drop her hemoglobin and a repeat EGD was performed. She was found to have an acute gastric ulcer of the fundus. Her hemoglobin stabilized. She was discharged home in stable condition. She will begin taking Protonix twice daily. She will continue taking Carafate. She will have a repeat blood draw to check her hemoglobin on Wednesday. She will follow up with Dr. Ramos in about a week. Labs and Pending Lab Test: Laboratory Tests 01/11/21 07:15: Hemoglobin 8.9L, Hematocrit 28L Home Meds Active Pantoprazole Sodium 40 Mg Tablet. 40 Mg PO BID 30 Days Reported Sucralfate 1 Gm Tablet 1 Gm PO QID DISSOLVES IN WATER Aleve (Naproxen Sodium) 220 Mg Tablet 220 Mg PO DAILY PRN Systane Complete (Propylene Glycol) 1.5 Ml Drops 1 Drop OU DAILY Hydralazine HCl 25 Mg Tablet 25 Mg PO BID Metoprolol Succinate 50 Mg Tab.er.24h 25 Mg PO HS TAKES 1/2 (50MG) TABLET Rosuvastatin Calcium 10 Mg Tablet 10 Mg PO HS Irbesartan 300 Mg Tablet 300 Mg PO DAILY Assessment/Pt Instructions Take medications as prescribed. Stop using Aleve. Begin taking Protonix twice daily. We will be rechecking your hemoglobin on Wednesday. Follow-up with Dr. Ramos. Return with worsening lightheadedness, dizziness, melena, or if you feel like you are getting worse. Discharge Planning: >30 minutes discharge planning Discharge Instructions Discharge Diet: No Restrictions Activity as Tolerated: Yes Consultations General surgery Discharge Physical Examination Vital Signs Vital Signs Date Time Temp Pulse Resp B/P (MAP) Pulse Ox O2 Delivery O2 Flow Rate FiO2 01/11/21 11:08 01/11/21 08:00 36.3 64 16 96 Room Air 01/10/21 13:55 10 General Appearance: No Apparent Distress, WD/WN Respiratory: Lungs Clear, Normal Breath Sounds, No Respiratory Distress Cardiovascular: Regular Rate, Rhythm, No Edema, No Murmur Gastrointestinal: Normal Bowel Sounds, Non Tender, Soft Extremity: Normal Inspection, Non Tender, No Pedal Edema Skin: Normal Color, Warm/Dry Neurologic/Psychiatric: Alert, Oriented x3, No Motor/Sensory Deficits, Normal Mood/Affect Allergies: Coded Allergies: Penicillins (Verified Allergy, Unknown, 08/29/17) hydrochlorothiazide (Verified Allergy, Unknown, 08/29/17) Copy Copies To 1: BEN RAMOS MD Discharge Summary Date of Admission Jan 06, 2021 at 11:31 Date of Discharge Jan 11, 2021 at 11:29 Discharge Date: Jan 11, 2021 Discharge Time: 11:29 Admission Diagnosis Acute blood loss anemia due to upper GI bleeding Consults/Procedures Consulations General surgery Procedures EGD Discharge Diagnosis Acute blood loss anemia due to upper GI bleeding from fundal gastric ulcer (1) Acute ulcer of gastric fundus Status: Acute (2) Acute upper GI bleeding Status: Acute (3) ABLA (acute blood loss anemia) Status: Acute (4) Esophagitis Status: Acute (5) Gastritis Status: Acute (6) HTN (hypertension) Status: Acute Qualifiers: Qualified Codes: I10 - Essential (primary) hypertension SUSANA HART MD Jan 11, 2021 12:47
== END 2021-01-11 11:29 | disposition home or self-care (01) | DRG 378 ==
LOC: EDUNIT# 10:20 → ER 10:22 → 4TH 11:31
PROVIDERS: ADMIT Internal Medicine; ATTEND Internal Medicine
PROC: 0DB68ZX Excision of Stomach, Via Natural or Artificial Opening Endoscopic, Diagnostic (ICD-10-PCS; principal; 2021-01-10 14:10)
DX: K25.4 Chronic or unspecified gastric ulcer with hemorrhage (principal); D62 Acute posthemorrhagic anemia; K21.00 Gastro-esophageal reflux disease with esophagitis, without bleeding; K29.70 Gastritis, unspecified, without bleeding; I10 Essential (primary) hypertension; I45.6 Pre-excitation syndrome; Z88.0 Allergy status to penicillin; E78.00 Pure hypercholesterolemia, unspecified; I73.9 Peripheral vascular disease, unspecified; I25.10 Atherosclerotic heart disease of native coronary artery without angina pectoris; Z95.820 Peripheral vascular angioplasty status with implants and grafts; K44.9 Diaphragmatic hernia without obstruction or gangrene
CPT/HCPCS: 36415; 78278; 80048; 83735; 85014; 85018; 85025; 86850; 86900; 86901; 86920; 96374

== ENCOUNTER → 2022-01-29 | Outpatient (CLI) | payer MEDICARE ==
[~2022-01-29] MED LIST changes: +NAPR220T66 PO; +OMEP40CA6 PO; +PANT40TA52 PO; +SUCR1TAB PO
== END ==
LOC: CARD 09:00
PROVIDERS: ATTEND Internal Medicine Cardiovascular Disease
DX: I34.0 Nonrheumatic mitral (valve) insufficiency (principal); I51.7 Cardiomegaly; I10 Essential (primary) hypertension
CPT/HCPCS: 93306

== ENCOUNTER 2023-04-30 13:00 | Emergency (ER) | payer MEDICARE ==
[~2023-04-30] VITALS: Ht 157 cm; Wt 55.0 kg
[2023-04-30] MEDS ORDERED: hydrALAZINE (APESOLINE) 20 MG/ML VIAL IV ONE (13:15)
--- NOTE | 2023-04-30 13:18 | ED Cardiac General ---
History of Present Illness General Chief Complaint: Cardiac/General Problems Stated Complaint: HYPERTENSION | DIZZY Nursing Triage Note: PT ARRIVED PER EMS, PT SENT FROM URGENT CARE, PT HAS HTN, DIZZINESS, NAUSEA. STARTED TODAY. PT IS CURRENTLY BEING TREATED FOR UTI Source: patient Exam Limitations: no limitations History of Present Illness Date Seen by Provider: Apr 30, 2023 Time Seen by Provider: 13:17 Initial Comments Patient is a 82-year-old female who presents the ED from urgent care for hypertension, dizziness and nausea. Dizziness started last night after she ate potato chips and sausage. She woke up with dizziness. Dizziness is described as room is spinning. Worse when she moves her head or when she gets up. Patient was seen at urgent care today had a blood pressure over 200 systolic. Was sent to the ER for hypertensive emergency. She denies of any headache, specific chest pain, unilateral muscle weakness or sensory changes. Nausea without vomiting. Denies history of similar symptoms. She is currently on irbesartan and Bystolic for her blood pressure. She states her blood pressure typically runs high. She denies shortness of breath, cough, vomiting, abdominal pain, diarrhea. Diagnosed with UTI today. She states the dizziness is somewhat better at this time. She denies blood thinner use. Denies fever, chills, body aches, visual changes, facial droop, change in mental status Allergies and Home Medications Allergies Coded Allergies: Penicillins (Verified Allergy, Unknown, 08/29/17) hydrochlorothiazide (Verified Allergy, Unknown, 08/29/17) Patient Home Medication List Home Medication List Reviewed: Yes Hydralazine HCl (Hydralazine HCl) 25 Mg Tablet, 25 MG PO BID, (Reported) Entered as Reported by: DELPHINE DOMINGO on 12/30/20 1058 Hydralazine HCl (Hydralazine HCl) 25 Mg Tablet, 25 MG PO TID Prescribed by: VICTORINA FORD on 05/02/23 2154 Irbesartan (Irbesartan) 300 Mg Tablet, 300 MG PO DAILY, (Reported) Entered as Reported by: MARS MILLER on 08/29/17 1731 Meclizine HCl (Meclizine HCl) 25 Mg Tablet, 25 MG PO Q6H PRN for DIZZINESS Prescribed by: DAVID SANDERS on 04/30/23 1503 Metoprolol Succinate (Metoprolol Succinate) 50 Mg Tab.er.24h, 25 MG PO HS, (Rep orted) Entered as Reported by: DELPHINE DOMINGO on 12/30/20 1058 Pantoprazole Sodium (Pantoprazole Sodium) 40 Mg Tablet.dr, 40 MG PO BID Prescribed by: SUSANA HART on 01/11/21 0812 Propylene Glycol (Systane Complete) 1.5 Ml Drops, 1 DROP OU DAILY, (Reported) Entered as Reported by: DELPHINE DOMINGO on 12/30/20 1058 Rosuvastatin Calcium (Rosuvastatin Calcium) 10 Mg Tablet, 10 MG PO HS, (Reported) Entered as Reported by: MARS MILLER on 08/29/17 1731 Sucralfate (Sucralfate) 1 Gm Tablet, 1 GM PO QID, (Reported) Entered as Reported by: DELPHINE DOMINGO on 01/06/21 1405 Review of Systems Review of Systems Constitutional: No chills, No diaphoresis EENTM: No Double Vision, No Eye Pain Respiratory: Denies Cough, Denies Orthopnea Cardiovascular: Denies Chest Pain Gastrointestinal: Denies Abdominal Pain, Denies Diarrhea; Nausea; Denies Vomiting Genitourinary: Denies Burning Musculoskeletal: No back pain, No joint pain Skin: No change in color All Other Systems Reviewed Negative Unless Noted: Yes Past [place]-Hybyse-Kxagrr Hx Patient Social History Tobacco Use?: No Substance use?: No Alcohol Use?: No Pt feels they are or have been: No Immunizations Up To Date Tetanus Booster (TDap): Unknown First/Initial COVID19 Vaccinat: 11/14/20 [facility] Second COVID19 Vaccination Eren: 12/13/20 [facility] Third COVID19 Vaccination Date: 11/14/20 [facility] Past Medical History Surgery/Hospitalization HX: HTN Surgeries: Yes (STENT IN RIGHT LEG 2009) Vascular Surgery Respiratory: No 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 oz. [id number]; 22.00 BMI Method:Stated General Appearance: No Apparent Distress, WD/WN HEENT: PERRL/EOMI, TMs Normal, Normal ENT Inspection, Pharynx Normal Neck: Full Range of Motion, Normal Inspection, Non Tender, Supple Respiratory: Chest Non Tender, Lungs Clear, Normal Breath Sounds, No Accessory Muscle Use, No Respiratory Distress Cardiovascular: No Edema, No Gallop, No JVD, No Murmur, Bradycardia Gastrointestinal: Normal Bowel Sounds, No Organomegaly, No Pulsatile Mass, Non Tender Extremity: Normal Capillary Refill, Normal Inspection, Normal Range of Motion, Non Tender Neurologic/Psychiatric: Alert, Oriented x3, No Motor/Sensory Deficits, Normal Mood/Affect, shower attendant II-XII Norm as Tested Skin: Normal Color, Warm/Dry Progress/Results/Core Measures Results/Orders Lab Results Laboratory Tests Test 04/30/23 13:03 Range/Units White Blood Count 9.5 4.3-11.0 10^3/uL Red Blood Count 4.57 3.80-5.11 10^6/uL Hemoglobin 13.6 11.5-16.0 g/dL Hematocrit 42 35-52 % Mean Corpuscular Volume 93 80-99 fL Mean Corpuscular Hemoglobin 30 25-34 pg Mean Corpuscular Hemoglobin Concent 32 32-36 g/dL Red Cell Distribution Width 13.2 10.0-14.5 % Platelet Count 203 130-400 10^3/uL Mean Platelet Volume 10.8 9.0-12.2 fL Immature Granulocyte % (Auto) 1 % Neutrophils (%) (Auto) 76 H 42-75 % Lymphocytes (%) (Auto) 17 12-44 % Monocytes (%) (Auto) 5 0-12 % Eosinophils (%) (Auto) 1 0-10 % Basophils (%) (Auto) 0 0-10 % Neutrophils # (Auto) 7.2 1.8-7.8 10^3/uL Lymphocytes # (Auto) 1.6 1.0-4.0 10^3/uL Monocytes # (Auto) 0.5 0.0-1.0 10^3/uL Eosinophils # (Auto) 0.1 0.0-0.3 10^3/uL Basophils # (Auto) 0.0 0.0-0.1 10^3/uL Immature Granulocyte # (Auto) 0.1 0.0-0.1 10^3/uL Prothrombin Time 13.6 12.2-14.7 SEC INR Comment 1.0 0.8-1.4 Activated Partial Thromboplast Time 27 24-35 SEC Sodium Level 139 135-145 MMOL/L Potassium Level 3.9 3.6-5.0 MMOL/L Chloride Level 106 98-107 MMOL/L Carbon Dioxide Level 21 21-32 MMOL/L Anion Gap 12 5-14 MMOL/L Blood Urea Nitrogen 12 7-18 MG/DL Creatinine 0.70 0.60-1.30 MG/DL Estimat Glomerular Filtration Rate 86 BUN/Creatinine Ratio 17 Glucose Level 119 H 70-105 MG/DL Calcium Level 9.2 8.5-10.1 MG/DL Corrected Calcium 9.3 8.5-10.1 MG/DL Magnesium Level 1.8 1.6-2.4 MG/DL Total Bilirubin 0.7 0.1-1.0 MG/DL Aspartate Amino Transf (AST/SGOT) 30 5-34 U/L Alanine Aminotransferase (ALT/SGPT) 22 0-55 U/L Alkaline Phosphatase 67 40-136 U/L Troponin I < 0.028 <0.028 NG/ML B-Type Natriuretic Peptide 137.0 H <100.0 PG/ML Total Protein 6.4 6.4-8.2 GM/DL Albumin 3.9 3.2-4.5 GM/DL My Orders Orders - ULISES ROMO PA Cbc With Automated Diff (04/30/23 13:14) Comprehensive Metabolic Panel (04/30/23 13:14) Troponin I Emmons (04/30/23 13:14) Bnp Emmons (04/30/23 13:14) Chest 1 View, Ap/Pa Only (04/30/23 13:14) Ct Head Wo (04/30/23 13:14) Magnesium (04/30/23 13:14) Partial Thromboplastin Time (04/30/23 13:14) Protime With Inr (04/30/23 13:14) Ekg Tracing (04/30/23 13:15) Hydralazine Injection (Apresoline Inject (04/30/23 13:15) Medications Given in ED Vital Signs/I&O 04/30/23 04/30/23 13:00 15:10 Temp 36.5 36.5 Pulse 56 59 Resp 18 18 B/P (MAP) 204/86 (125) 153/61 Pulse Ox 99 99 Blood Pressure Mean: 125 Departure Communication (PCP) Patient is a 82-year-old female who presents the ED for dizziness and elevated blood pressure. Patient Was seen at urgent care and was sent to the ED concern for hypertensive emergency. She reports a known history of hypertension currently on irbesartan, metoprolol, hydralazine. Symptoms started last night by episode of dizziness. She states she felt a little better before bed but when she woke up the dizziness continue. Appears to be worse with movement. Denies ear ringing, hearing loss. She denies of any headache, unilateral weakness, facial droop, slurred speech, visual changes. No history of stroke. She is not on anticoagulants. She has no other symptoms such as visual changes, chest pain, cough, shortness of breath, vomiting. She did report nausea. She had no meningeal signs. Due to current complaint and elevated blood pressure over [address] scan head, CBC, CMP, EKG and cardiac work-up. EKG without evidence of ST elevation or significant depression. She was signed and bradycardic. She was not orthostatic hypotensive. General lab work unremarkable. Slight elevated BNP 137. Chest x-ray was negative for pleural effusion, pulmonary edema. No appreciation of lower leg swelling. She has no current focal neural deficits. CT scan head negative for acute finding. Chronic small vessel disease. Patient received hydralazine 10 mg with improvement of blood pressure near 150 systolic. Did attempt Karina-Hallpike did not appreciate any nystagmus. She states her dizziness improved when her blood pressure improved. She was able to ambulate with a steady gait and denies feeling dizzy. She is currently asymptomatic. Patient does not appear toxic or septic. She is feeling much better. Dizziness and nausea may be related to episode of peripheral vertigo versus the hypertension. Since patient symptoms are improving she will be discharged. Continue taking your hydralazine and m etoprolol and irbesartan. Follow-up your PCP or cardilogist in 2-3 days. If any worsening symptoms return back to ED Impression Primary Impression: HTN (hypertension) Additional Impression: Dizziness Disposition: 01 HOME, SELF-CARE Condition: Stable Departure-Patient Inst. Decision time for Depature: 14:59 Referrals: LISY GUIDRY MD, JOHN D MD (PCP/Family) Primary Care Physician Patient Instructions: Dizziness, Adult ED Add. Discharge Instructions: Recommend follow-up with your primary care physician for further evaluation of the dizziness and elevated blood pressure. Continue monitoring blood pressure at home and continue to take the medication. If continue running over 180 systolic to return back to ED Take meclizine as needed for dizziness. If dizziness gets worse to return back to ED All discharge instructions reviewed with patient and/or family. Voiced understanding. Scripts Meclizine HCl (Meclizine HCl) 25 Mg Tablet 25 MG PO Q6H PRN for DIZZINESS, #8 TAB Prov: ULISES ROMO 04/30/23 ULISES ROMO Apr 30, 2023 13:17
[2023-04-30 13:26] LABS: ALBUMIN 3.9 GM/DL (3.2-4.5)
[2023-04-30 13:27] LABS: CHLORIDE 106 MMOL/L (98-107); POTASSIUM 3.9 MMOL/L (3.6-5.0); SODIUM 139 MMOL/L (135-145)
[2023-04-30 13:28] LABS: CALCIUM 9.2 MG/DL (8.5-10.1)
[2023-04-30 13:29] LABS: GLUCOSE 119 MG/DL (70-105); TOTAL PROTEIN 6.4 GM/DL (6.4-8.2)
[2023-04-30 13:30] LABS: CARBON DIOXIDE 21 MMOL/L (21-32)
[2023-04-30 13:31] LABS: BILIRUBIN,TOTAL 0.7 MG/DL (0.1-1.0)
[2023-04-30 13:33] LABS: ALKALINE PHOSPHATASE 67 U/L (40-136); GFR ESTIMATED 86
[2023-04-30 13:34] LABS: BUN/CREATININE RATIO 17
[2023-04-30 13:35] LABS: BASOPHILS % (AUTO) 0 % (0-10); EOSINOPHILS # (AUTO) 0.1 10^3/uL (0.0-0.3); EOSINOPHILS % (AUTO) 1 % (0-10); HEMATOCRIT 42 % (35-52); HEMOGLOBIN 13.6 g/dL (11.5-16.0); LYMPHOCYTES # (AUTO) 1.6 10^3/uL (1.0-4.0); LYMPHOCYTES % (AUTO) 17 % (12-44); MEAN CORPUSCULAR HEMOGLOBIN 30 pg (25-34); MEAN CORPUSCULAR HGB CONC 32 g/dL (32-36); MEAN CORPUSCULAR VOLUME 93 fL (80-99); MEAN PLATELET VOLUME 10.8 fL (9.0-12.2); MONOCYTES # (AUTO) 0.5 10^3/uL (0.0-1.0); MONOCYTES % (AUTO) 5 % (0-12); NEUTROPHILS # (AUTO) 7.2 10^3/uL (1.8-7.8); NEUTROPHILS % (AUTO) 76 % (42-75); PLATELET COUNT 203 10^3/uL (130-400); WHITE BLOOD COUNT 9.5 10^3/uL (4.3-11.0)
[2023-04-30 13:36] LABS: ALANINE AMINOTRANSFERASE 22 U/L (0-55); MAGNESIUM 1.8 MG/DL (1.6-2.4)
[2023-04-30 13:41] LABS: PROTHROMBIN TIME PATIENT 13.6 SEC (12.2-14.7)
--- NOTE | 2023-04-30 13:44 | Diagnostic Imaging Report ---
PROCEDURE: CT head without contrast. TECHNIQUE: Multiple contiguous axial images were obtained through the brain without the use of intravenous contrast. Auto Exposure Controls were utilized during the CT exam to meet ALARA standards for radiation dose reduction. INDICATION: Dizziness COMPARISON: None. Findings: Mild generalized cerebral volume loss. Mild nonspecific periventricular hypoattenuation.. No intra- or extra-axial mass or fluid collection. No acute hemorrhage. The ventricles are normal in size, shape, and morphology. The erazo-white matter junction is normal. The subarachnoid cisterns are patent. The visualized paranasal sinuses are normal. The visualized portions of the orbits and globes are normal. The mastoid air cells are clear. The automotive internet sales consultant topogram shows no lytic lesion or fracture. Impression: No acute intracranial process. Mild chronic small vessel ischemic disease. Mild global volume loss. Dictated by: Dictated on workstation # [id number]
--- NOTE | 2023-04-30 13:53 | Diagnostic Imaging Report ---
INDICATION: Chest pain. FINDINGS: Lungs are clear. No failure, effusion, or pneumothorax. No change from study of 12/28/2020. IMPRESSION: Negative. Dictated by: Dictated on workstation # [id number]
[2023-04-30] MEDS ORDERED: MECL-149 PO (15:03)
[2023-04-30 15:10] VITALS: BP 153/61
== END 2023-04-30 15:19 | disposition home or self-care (01) ==
LOC: EDUNIT# 13:00 → ER 13:01
DX: I10 Essential (primary) hypertension (principal); N39.0 Urinary tract infection, site not specified
CPT/HCPCS: 36415; 70450; 71045; 80053; 83735; 83880; 84484; 85025; 85610; 85730; 93005

== ENCOUNTER 2023-05-02 20:05 | Emergency (ER) | payer MEDICARE ==
[~2023-05-02] VITALS: Ht 157.4 cm; Wt 55.3 kg
[~2023-05-02 20:05] MED LIST changes: +MECL-149 PO
[2023-05-02 20:55] LABS: BASOPHILS % (AUTO) 0 % (0-10); EOSINOPHILS # (AUTO) 0.2 10^3/uL (0.0-0.3); EOSINOPHILS % (AUTO) 2 % (0-10); HEMATOCRIT 42 % (35-52); HEMOGLOBIN 13.6 g/dL (11.5-16.0); LYMPHOCYTES # (AUTO) 1.6 10^3/uL (1.0-4.0); LYMPHOCYTES % (AUTO) 18 % (12-44); MEAN CORPUSCULAR HEMOGLOBIN 30 pg (25-34); MEAN CORPUSCULAR HGB CONC 32 g/dL (32-36); MEAN CORPUSCULAR VOLUME 93 fL (80-99); MEAN PLATELET VOLUME 10.5 fL (9.0-12.2); MONOCYTES # (AUTO) 0.8 10^3/uL (0.0-1.0); MONOCYTES % (AUTO) 9 % (0-12); NEUTROPHILS # (AUTO) 6.4 10^3/uL (1.8-7.8); NEUTROPHILS % (AUTO) 71 % (42-75); PLATELET COUNT 201 10^3/uL (130-400)
[2023-05-02] MEDS ORDERED: hydrALAZINE (APESOLINE) 20 MG/ML VIAL IV ONE ×2 (21:00→22:00)
[2023-05-02 21:14] LABS: ALBUMIN 4.3 GM/DL (3.2-4.5); BILIRUBIN,TOTAL 0.8 MG/DL (0.1-1.0); CALCIUM 9.7 MG/DL (8.5-10.1); CREATININE SERUM 0.8 MG/DL (0.60-1.30); MAGNESIUM 1.9 MG/DL (1.6-2.4); POTASSIUM 3.9 MMOL/L (3.6-5.0)
--- NOTE | 2023-05-02 21:53 | ED Cardiac General ---
History of Present Illness General Chief Complaint: Cardiac/General Problems Stated Complaint: BLOOD PRESSURE PROBLEMS Nursing Triage Note: PT ARRIVED POV WITH CC OF ELEVATED BP. PT WAS SEEN WEDNESDAY FOR SAME ISSUE AND HAS NOT HAD ANY IMPROVEMENT. BP ON ARRIVAL WAS 233/94. Source: patient History of Present Illness Date Seen by Provider: May 02, 2023 Allergies and Home Medications Allergies Coded Allergies: Penicillins (Verified Allergy, Unknown, 08/29/17) hydrochlorothiazide (Verified Allergy, Unknown, 08/29/17) Patient Home Medication List Hydralazine HCl (Hydralazine HCl) 25 Mg Tablet, 25 MG PO BID, (Reported) Entered as Reported by: DELPHINE DOMINGO on 12/30/20 1058 Hydralazine HCl (Hydralazine HCl) 25 Mg Tablet, 25 MG PO TID Prescribed by: VICTORINA FORD on 05/02/23 2154 Irbesartan (Irbesartan) 300 Mg Tablet, 300 MG PO DAILY, (Reported) Entered as Reported by: MARS MILLER on 08/29/17 1731 Meclizine HCl (Meclizine HCl) 25 Mg Tablet, 25 MG PO Q6H PRN for DIZZINESS Prescribed by: DAVID SANDERS on 04/30/23 1503 Metoprolol Succinate (Metoprolol Succinate) 50 Mg Tab.er.24h, 25 MG PO HS, (Reported) Entered as Reported by: DELPHINE DOMINGO on 12/30/20 1058 Pantoprazole Sodium (Pantoprazole Sodium) 40 Mg Tablet.dr, 40 MG PO BID Prescribed by: SUSANA HART on 01/11/21 0812 Propylene Glycol (Systane Complete) 1.5 Ml Drops, 1 DROP OU DAILY, (Reported) Entered as Reported by: DELPHINE DOMINGO on 12/30/20 1058 Rosuvastatin Calcium (Rosuvastatin Calcium) 10 Mg Tablet, 10 MG PO HS, (Reported) Entered as Reported by: MARS MILLER on 08/29/17 1731 Sucralfate (Sucralfate) 1 Gm Tablet, 1 GM PO QID, (Reported) Entered as Reported by: DELPHINE DOMINGO on 01/06/21 1405 Past Hlmapkr-Pqeyyf-Wcyelo Hx Patient Social History Tobacco Use?: No Substance use?: No Alcohol Use?: No Immunizations Up To Date Tetanus Booster (TDap): Unknown First/Initial COVID19 Vaccinat: 11/14/20 Second COVID19 Vaccination Eren: 12/13/20 Third COVID19 Vaccination Date: 11/14/20 Past Medical History Surgery/Hospitalization HX: HTN Surgeries: Yes (STENT IN RIGHT LEG 2009) Vascular Surgery Respiratory: No 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 oz. 66.556099zw; 22.00 BMI Method:Stated Progress/Results/Core Measures Results/Orders Lab Results Laboratory Tests Test 05/02/23 20:41 Range/Units White Blood Count 9.0 4.3-11.0 10^3/uL Red Blood Count 4.58 3.80-5.11 10^6/uL Hemoglobin 13.6 11.5-16.0 g/dL Hematocrit 42 35-52 % Mean Corpuscular Volume 93 80-99 fL Mean Corpuscular Hemoglobin 30 25-34 pg Mean Corpuscular Hemoglobin Concent 32 32-36 g/dL Red Cell Distribution Width 13.3 10.0-14.5 % Platelet Count 201 130-400 10^3/uL Mean Platelet Volume 10.5 9.0-12.2 fL Immature Granulocyte % (Auto) 0 % Neutrophils (%) (Auto) 71 42-75 % Lymphocytes (%) (Auto) 18 12-44 % Monocytes (%) (Auto) 9 0-12 % Eosinophils (%) (Auto) 2 0-10 % Basophils (%) (Auto) 0 0-10 % Neutrophils # (Auto) 6.4 1.8-7.8 10^3/uL Lymphocytes # (Auto) 1.6 1.0-4.0 10^3/uL Monocytes # (Auto) 0.8 0.0-1.0 10^3/uL Eosinophils # (Auto) 0.2 0.0-0.3 10^3/uL Basophils # (Auto) 0.0 0.0-0.1 10^3/uL Immature Granulocyte # (Auto) 0.0 0.0-0.1 10^3/uL Sodium Level 140 135-145 MMOL/L Potassium Level 3.9 3.6-5.0 MMOL/L Chloride Level 108 H 98-107 MMOL/L Carbon Dioxide Level 23 21-32 MMOL/L Anion Gap 9 5-14 MMOL/L Blood Urea Nitrogen 12 7-18 MG/DL Creatinine 0.80 0.60-1.30 MG/DL Estimat Glomerular Filtration Rate 73 BUN/Creatinine Ratio 15 Glucose Level 110 H 70-105 MG/DL Calcium Level 9.7 8.5-10.1 MG/DL Corrected Calcium 9.5 8.5-10.1 MG/DL Magnesium Level 1.9 1.6-2.4 MG/DL Total Bilirubin 0.8 0.1-1.0 MG/DL Aspartate Amino Transf (AST/SGOT) 28 5-34 U/L Alanine Aminotransferase (ALT/SGPT) 28 0-55 U/L Alkaline Phosphatase 74 40-136 U/L Total Protein 7.0 6.4-8.2 GM/DL Albumin 4.3 3.2-4.5 GM/DL My Orders Orders - VICTORINA FORD DO Ed Iv/Invasive Line Start (05/02/23 20:24) Ekg Tracing (05/02/23 20:24) Monitor-Rhythm Ecg Trace Only (05/02/23 20:24) Cbc With Automated Diff (05/02/23 20:24) Comprehensive Metabolic Panel (05/02/23 20:24) Magnesium (05/02/23 20:24) Hydralazine Injection (Apresoline Inject (05/02/23 21:00) Ua Culture If Indicated (05/02/23 20:56) Hydralazine Injection (Apresoline Inject (05/02/23 22:00) Medications Given in ED Current Medications Medications Dose Ordered Sig/Juan F Route Start Time Stop Time Status Last Admin Dose Admin Hydralazine HCl 10 mg ONCE ONCE IV 05/02/23 21:00 05/02/23 21:01 DC 05/02/23 21:01 10 MG Vital Signs/I&O 05/02/23 20:15 Pulse 65 Resp 14 B/P (MAP) 233/94 (140) Pulse Ox 98 O2 Delivery Room Air Blood Pressure Mean: 140 Departure Impression Primary Impression: Uncontrolled hypertension Disposition: HOME, SELF-CARE Condition: Improved Departure-Patient Inst. Decision time for Depature: 21:55 Referrals: LISY GUIDRY MD, JOHN D MD (PCP/Family) Primary Care Physician Patient Instructions: High Blood Pressure ED, DASH Diet Add. Discharge Instructions: CONTINUE ALL YOUR MEDICATIONS PRESCRIBED YOU MAY TAKE HYDRALAZINE THREE TIMES A DAY EVERY DAY FOLLOW UP WITH DR. GUIDRY THIS WEEK FOR FURTHER CARE--CALL IN THE MORNING TO SCHEDULE AN APPOINTMENT All discharge instructions reviewed with patient and/or family. Voiced understanding. Scripts Hydralazine HCl (Hydralazine HCl) 25 Mg Tablet 25 MG PO TID, #30 TAB Prov: VICTORINA FORD DO 05/02/23 VICTORINA FORD DO May 02, 2023 21:53
[2023-05-02] MEDS ORDERED: HYDR-3923 PO (21:54)
[2023-05-02 22:25] VITALS: BP 151/60
== END 2023-05-02 22:30 | disposition home or self-care (01) ==
LOC: EDUNIT# 20:05 → ER 20:07
DX: I10 Essential (primary) hypertension (principal)
CPT/HCPCS: 36415; 80053; 83735; 85025; 93005; 93041